=== PATIENT | female | born 1960 | race Caucasian/White ===

== ENCOUNTER → 2016-08-01 | Outpatient (CLI) | payer BC ==
--- NOTE | 2016-08-03 08:47 | MM ---
Reason for exam: screening (asymptomatic). Last mammogram was performed 1 year and 10 months ago. History: Patient is postmenopausal. Physical Findings: A clinical breast exam by your physician is recommended on an annual basis and results should be correlated with mammographic findings. MG 3D Screening Mammo W/Cad Bilateral CC and MLO view(s) were taken. Prior study comparison: September 20, 2014, bilateral MG screening mammo w CAD. August 07, 2012, bilateral digital screening mammo w/CAD. Unchanged nodular asymmetry superior left breast. Stable oil cyst calcifications upper outer right breast. No significant changes when compared with prior studies. ASSESSMENT: Negative, BI-RAD 1 RECOMMENDATION: Routine screening mammogram of both breasts in 1 year.
== END | disposition home or self-care (01) ==
LOC: RADMAMWWP 14:34
PROVIDERS: ATTEND Family Medicine
DX: Z12.31 Encounter for screening mammogram for malignant neoplasm of breast (principal)
CPT/HCPCS: 77063; G0202

== ENCOUNTER 2020-11-02 11:49 | Inpatient (IN) | payer BC ==
[2020-11-02] MEDS ORDERED: PIPERACILLIN-TAZOBACTAM 3.375 GM in SODIUM CHLORIDE 0.9% 100 ML IVPB STA (12:32)
[2020-11-02] MEDS ORDERED: SODIUM CHLORIDE 0.9% 500 ML 500 ML IV ONE (12:33)
[2020-11-02] MEDS ORDERED: HYDROmorphone 0.5 MG/0.5 ML SYRINGE IVP STA (12:33)
[2020-11-02] MEDS ORDERED: diphenhydrAMINE 50 MG/ML 1 ML VIAL IVP STA (13:01)
[2020-11-02] MEDS ORDERED: FAMOTIDINE 20 MG/2 ML VIAL IV STA (13:01)
[2020-11-02] MEDS ORDERED: methylPREDNISolone SOD SUCCI 125 MG/2 ML VIAL IV STA (13:01)
--- NOTE | 2020-11-02 13:51 | ED ---
Skin/Abscess/FB HPI - General Source: patient Mode of arrival: ambulatory Limitations: no limitations <Sheela Almaguer - Last Filed: 11/02/20 14:18> <Da Glover - Last Filed: 11/02/20 15:50> - General Chief complaint: Skin/Abscess/Foreign Body Stated complaint: poss MRSA Time Seen by Provider: 11/02/20 12:03 - History of Present Illness Initial comments: 59-year-old female IDDM, with IV contrast allergy presenting to the ER today for chief complaint of right inner buttock abscess. pt states that her right inner buttock near the "butthole" is painful, red and swollen. she is concerned that she has an abscess. pt states it has been ongoing 4-5 days, but worsened significantly the last 24. pt denies fevers, chills, general malaise. Pt denies rectal bleeding/discharge. pt denies additional complaints. Upon arrival patient appears nontoxic. (Sheela Almaguer) - Related Data Home Medications Medication Instructions Recorded Confirmed Amitriptyline HCl [Elavil] 75 mg PO HS 04/09/15 11/02/20 Omeprazole [PriLOSEC] 20 mg PO AC-BRKFST 04/09/15 11/02/20 Atorvastatin [Lipitor] 40 mg PO DAILY 11/02/20 11/02/20 Insulin Aspart [NovoLOG Flexpen] 12 units SQ AC-TID 11/02/20 11/02/20 Insulin Degludec [Tresiba 12 units SQ HS 11/02/20 11/02/20 Flextouch U-100] Levothyroxine Sodium 150 mcg PO DAILY 11/02/20 11/02/20 Allergies Allergy/AdvReac Type Severity Reaction Status Date / Time Iodinated Contrast Media Allergy Rash/Hives Verified 11/02/20 14:06 Review of Systems ROS Other: All systems not noted in ROS Statement are negative. <Sheela Almaguer - Last Filed: 11/02/20 14:18> ROS Other: All systems not noted in ROS Statement are negative. <Da Glover - Last Filed: 11/02/20 15:50> ROS Statement: Those systems with pertinent positive or pertinent negative responses have been documented in the HPI. Past Medical History Past Medical History: Hyperlipidemia Additional Past Medical History / Comment(s): neuropathy History of Any Multi-Drug Resistant Organisms: None Reported Past Surgical History: Cholecystectomy, Coronary Bypass/CABG Past Psychological History: No Psychological Hx Reported Smoking Status: Current every day smoker Past Alcohol Use History: None Reported Past Drug Use History: None Reported <Sheela Almaguer - Last Filed: 11/02/20 14:18> General Exam Limitations: no limitations <Sheela Almaguer - Last Filed: 11/02/20 14:18> - General Exam Comments Initial Comments: General: The patient is awake and alert, in no distress, and does not appear acutely ill. Eye: Pupils are equal, round and reactive to light, extra-ocular movements are intact. No nystagmus. There is normal conjunctiva bilaterally. No signs of icterus. Ears, nose, mouth and throat: There are moist mucous membranes and no oral lesions. Neck: The neck is supple, there is no tenderness or JVD. Cardiovascular: There is a regular rate and rhythm. No murmur, rub or gallop is appreciated. Respiratory: Lungs are clear to auscultation, respirations are non-labored, breath sounds are equal. No wheezes, stridor, rales, or rhonchi. Gastrointestinal: [Soft, non-distended, non-tender abdomen without masses or organomegaly noted. There is no rebound or guarding present. No CVA tenderness. Bowel sounds are unremarkable.] Musculoskeletal: Normal ROM, no tenderness. Strength 5/5. Sensation intact. Pulses equal bilaterally 2+. Neurological: A&O x 3. CN II-XII intact, There are no obvious motor or sensory deficits. Coordination appears grossly intact. Speech is normal. Skin: Skin is warm and dry and no rashes. large area of redness, induration at the 3 o clock position adjacent to anus. Patient has some vesicular lesions in area. the redness spreads distally-- Psychiatric: Cooperative, appropriate mood & affect, normal judgment. (Sheela Almaguer) Course <Sheela Almaguer - Last Filed: 11/02/20 14:18> Vital Signs 11/02/20 11/02/20 11:52 13:47 Temperature 97.8 F Pulse Rate 110 H 96 Respiratory 18 18 Rate Blood Pressure 113/55 130/76 O2 Sat by Pulse 94 L 96 Oximetry - Reevaluation(s) Reevaluation #1: signed out to Dr Glover 11/02/20 14:18 (Sheela Almaguer) Medical Decision Making - Lab Data Result diagrams: 11/02/20 13:12 11/02/20 13:12 <Sheela Almaguer - Last Filed: 11/02/20 14:18> - Lab Data Result diagrams: 11/02/20 13:12 11/02/20 13:12 <Da Glover - Last Filed: 11/02/20 15:50> - Medical Decision Making suspected large abscess with significant surrounding cellulitis. pt evaluated with my attending Dr Glover who recommends admission on IV abx to general surgery; pt signed out to Dr. Glover pending CT results/final lab studies/EKG (Sheela Almaguer) EKG shows sinus rhythm with occasional PVC at 92 bpm FL interval 274 QRS is 90 QT interval 32 QTC is 472. No ST segment elevation or depression Computed tomography scan I got a call from the radiologist and he stated there was a large abscess in the perirectal region which had subcutaneous air and could be a necrotizing fasciitis. At this point time at 3:23 PM I spoke with Dr. Pimentel and informed her of the abscess and subcutaneous air. (Da Glover) - Lab Data Lab Results 11/02/20 11/02/20 11/02/20 Range/Units 13:12 13:12 13:12 WBC 17.3 H (3.8-10.6) k/uL RBC 3.96 (3.80-5.40) m/uL Hgb 13.2 (11.4-16.0) gm/dL Hct 38.6 (34.0-46.0) % MCV 97.3 (80.0-100.0) fL MCH 33.4 (25.0-35.0) pg MCHC 34.3 (31.0-37.0) g/dL RDW 12.7 (11.5-15.5) % Plt Count 309 (150-450) k/uL MPV 7.5 Neutrophils % 86 % Lymphocytes % 7 % Monocytes % 5 % Eosinophils % 1 % Basophils % 0 % Neutrophils # 15.0 H (1.3-7.7) k/uL Lymphocytes # 1.3 (1.0-4.8) k/uL Monocytes # 0.8 (0-1.0) k/uL Eosinophils # 0.1 (0-0.7) k/uL Basophils # 0.0 (0-0.2) k/uL Sodium 127 L (137-145) mmol/L Potassium 4.8 (3.5-5.1) mmol/L Chloride 92 L (98-107) mmol/L Carbon Dioxide 23 (22-30) mmol/L Anion Gap 12 mmol/L BUN 16 (7-17) mg/dL Creatinine 0.76 (0.52-1.04) mg/dL Est GFR (CKD-EPI)AfAm >90 (>60 ml/min/1.73 sqM) Est GFR (CKD-EPI)NonAf 87 (>60 ml/min/1.73 sqM) Glucose 419 H (74-99) mg/dL POC Glucose (mg/dL) (75-99) mg/dL POC Glu Filleter ID Plasma Lactic Acid Amadeo 2.3 H* (0.7-2.0) mmol/L Calcium 8.9 (8.4-10.2) mg/dL Phosphorus (2.5-4.5) mg/dL Magnesium 1.0 L (1.6-2.3) mg/dL Total Bilirubin 1.2 (0.2-1.3) mg/dL AST 46 H (14-36) U/L ALT 30 (4-34) U/L Alkaline Phosphatase 138 H (38-126) U/L Total Protein 6.9 (6.3-8.2) g/dL Albumin 3.7 (3.5-5.0) g/dL Acetone, Qual Positive (Negative) 11/02/20 11/02/20 Range/Units 13:12 15:16 WBC (3.8-10.6) k/uL RBC (3.80-5.40) m/uL Hgb (11.4-16.0) gm/dL Hct (34.0-46.0) % MCV (80.0-100.0) fL MCH (25.0-35.0) pg MCHC (31.0-37.0) g/dL RDW (11.5-15.5) % Plt Count (150-450) k/uL MPV Neutrophils % % Lymphocytes % % Monocytes % % Eosinophils % % Basophils % % Neutrophils # (1.3-7.7) k/uL Lymphocytes # (1.0-4.8) k/uL Monocytes # (0-1.0) k/uL Eosinophils # (0-0.7) k/uL Basophils # (0-0.2) k/uL Sodium (137-145) mmol/L Potassium (3.5-5.1) mmol/L Chloride (98-107) mmol/L Carbon Dioxide (22-30) mmol/L Anion Gap mmol/L BUN (7-17) mg/dL Creatinine (0.52-1.04) mg/dL Est GFR (CKD-EPI)AfAm (>60 ml/min/1.73 sqM) Est GFR (CKD-EPI)NonAf (>60 ml/min/1.73 sqM) Glucose (74-99) mg/dL POC Glucose (mg/dL) 429 H (75-99) mg/dL POC Glu Filleter ID Naa Wayne Plasma Lactic Acid Amadeo (0.7-2.0) mmol/L Calcium (8.4-10.2) mg/dL Phosphorus 3.2 (2.5-4.5) mg/dL Magnesium (1.6-2.3) mg/dL Total Bilirubin (0.2-1.3) mg/dL AST (14-36) U/L ALT (4-34) U/L Alkaline Phosphatase (38-126) U/L Total Protein (6.3-8.2) g/dL Albumin (3.5-5.0) g/dL Acetone, Qual (Negative) Critical Care Time Critical Care Time: Yes Total Critical Care Time: 35 <Da Glover - Last Filed: 11/02/20 15:50> Disposition Is patient prescribed a controlled substance at d/c from ED?: No Time of Disposition: 14:19 Decision to Admit Reason: Admit from EC Decision Date: 11/02/20 Decision Time: 14:19 <Sheela Almaguer - Last Filed: 11/02/20 14:18> <Da Glover - Last Filed: 11/02/20 15:50> Clinical Impression: DKA (diabetic ketoacidoses), Perianal abscess, Necrotizing fasciitis Disposition: ADMITTED IP TO THIS HOSP Condition: Stable Referrals: Arturo Upton MD [Primary Care Provider] - 1-2 days
[2020-11-02 13:52] LABS: Basophils % (A) 0 %; Eosinophils # (A) 0.1 k/uL (0-0.7); Eosinophils % (A) 1 %; HCT 38.6 % (34.0-46.0); HGB 13.2 gm/dL (11.4-16.0); Lymphocytes # (A) 1.3 k/uL (1.0-4.8); Lymphocytes % (A) 7 %; MCH 33.4 pg (25.0-35.0); MCHC 34.3 g/dL (31.0-37.0); MCV 97.3 fL (80.0-100.0); Mean Platelet Volume 7.5; Monocytes # (A) 0.8 k/uL (0-1.0); Monocytes % (A) 5 %; Neutrophils % (A) 86 %; Platelet Count 309 k/uL (150-450); RBC 3.96 m/uL (3.80-5.40); RDW 12.7 % (11.5-15.5); WBC 17.3 k/uL (3.8-10.6)
[2020-11-02] MEDS ORDERED: SODIUM CHLORIDE 0.9% 1,000 ML IV ONE (13:58)
[2020-11-02] MEDS ORDERED: VANCOMYCIN IV PER PHARMACY 1 EACH MISC MISCELLANE PRN (14:01)
[2020-11-02 14:04] LABS: ALT 30 U/L (4-34); AST 46 U/L (14-36); African American GFR (CKD) >90 (>60 ml/min/1.73 sqM); Albumin 3.7 g/dL (3.5-5.0); Alkaline Phosphatase 138 U/L (38-126); Anion Gap 12 mmol/L; Blood Urea Nitrogen 16 mg/dL (7-17); Calcium 8.9 mg/dL (8.4-10.2); Carbon Dioxide 23 mmol/L (22-30); Chloride 92 mmol/L (98-107); Glucose 419 mg/dL (74-99); Non-African American GFR(CKD) 87 (>60 ml/min/1.73 sqM); Potassium 4.8 mmol/L (3.5-5.1); Sodium 127 mmol/L (137-145); Total Bilirubin 1.2 mg/dL (0.2-1.3); Total Protein 6.9 g/dL (6.3-8.2)
[2020-11-02] MEDS ORDERED: INSULIN REGULAR BOLUS (FROM DRIP BAG) IV ONE (14:17)
[2020-11-02] MEDS ORDERED: VANCOMYCIN 2,000 MG in SODIUM CHLORIDE 0.9% 500 ML 500 ML IVPB ONE (14:30)
--- NOTE | 2020-11-02 15:23 | CT ---
EXAMINATION TYPE: CT pelvis w con DATE OF EXAM: 11/02/2020 COMPARISON: Prior CT June 20, 2012 HISTORY: Perianal abscess CT DLP: 1157 mGycm Automated exposure control for dose reduction was used. CONTRAST: Performed without oral but with IV Contrast, patient injected with 100 ML mL of Isovue 300. FINDINGS: Cardiomegaly is identified. Imaging includes the entire abdomen though not ordered. Mild to moderate bibasilar scarring and/or atelectasis. Visualized liver is low dense relative to the spleen consisten t with diffuse fatty infiltration. Cholecystectomy clips are redemonstrated. Mild/moderate focal fat stranding in the pancreatic head and uncinate process redemonstrated. Urinary bladder appears within normal limits. Vertebral uterus is seen. No adnexal masses noted. No s uspicious smaller large bowel dilatation. Normal-appearing appendix right lower quadrant. Mild to mod erate mixed plaque in the distal abdominal aorta extends into branch vessels. Scattered bilateral pel reid phleboliths. Persistent small to moderate-sized fat-containing left inguinal hernia. There is moderate to severe ill-defined fluid and fat stranding over the inferior gluteal regions rig ht greater than left. There is more focal fluid in the deeper central right tissue with scattered irr egular foci of air. There is larger deeper 2.4 cm focus of air axial image 108. There is some extensi on of fluid and foci of air into the left deep perianal region. Roughly 2 cm focus of air superiorly in the midline 100 is noted just posterior to the anus. No thick well-formed fluid collection identified. Craniocaud al length of involvement is roughly 10.0 cm coronal image 103. IMPRESSION: Significant infection in the posterior perianal region extending inferiorly throughout th e inferior posterior soft tissue greater in severity on the right versus left. Presence of ill-define d air foci is noted raising concern for gas forming organism and/or necrotizing fasciitis. Critical results communicated to covering ER physician via telephone at time of dictation.
[2020-11-02 15:27] LABS: Glucose,Whole Blood 429 mg/dL (75-99)
[2020-11-02] MEDS: INSULIN REGULAR 100 UNIT in SODIUM CHLORIDE 0.9% 100 ML IV SCH ×2 (15:52→23:34)
[2020-11-02 16:31] LABS: Appearance,Urine Cloudy (Clear); Bacteria,Urine Rare /hpf; Bilirubin,Urine Negative (Negative); Blood,Urine Negative (Negative); Color,Urine Yellow; Glucose,Urine (UA) 4+ (Negative); Ketones,Urine Negative (Negative); Leukocyte Esterase,Urine Negative (Negative); Mucus,Urine Rare /hpf; Nitrite,Urine Negative (Negative); Protein,Urine Trace (Negative); RBC,Urine 3 /hpf (0-5); Squamous Epithelial Cell,Urine 17 /hpf (0-4); WBC,Urine 10 /hpf (0-5)
[2020-11-02 16:54] LABS: Specific Gravity,Urine >1.050 (1.001-1.035)
[2020-11-02 17:08] LABS: Glucose,Whole Blood 285 mg/dL (75-99)
[2020-11-02 17:39] LABS: African American GFR (CKD) >90 (>60 ml/min/1.73 sqM); Anion Gap 6 mmol/L; Blood Urea Nitrogen 9 mg/dL (7-17); Carbon Dioxide 15 mmol/L (22-30); Chloride 111 mmol/L (98-107); Glucose 198 mg/dL (74-99); Non-African American GFR(CKD) >90 (>60 ml/min/1.73 sqM); Phosphorus 1.7 mg/dL (2.5-4.5); Sodium 132 mmol/L (137-145)
[2020-11-02 17:43] LABS: Potassium 3.2 mmol/L (3.5-5.1)
[2020-11-02 17:52] LABS: Glucose,Whole Blood 251 mg/dL (75-99)
[2020-11-02] MEDS: D5-0.45% NACL WITH KCL 20MEQ/L 1,000 ML IV SCH (18:16)
[2020-11-02] MEDS ORDERED: ALPRAZolam 0.25 MG TAB PO PRN (18:19)
[2020-11-02] MEDS ORDERED: ACETAMINOPHEN TAB 500 MG TAB PO PRN (18:19)
[2020-11-02] MEDS ORDERED: TEMAZEPAM 15 MG CAP PO PRN (18:19)
[2020-11-02] MEDS ORDERED: Potassium Replacement Protocol 1 EACH MISC MISCELLANE PRN (18:25)
[2020-11-02] MEDS ORDERED: Magnesium Replacement Protocol 1 EACH MISC MISCELLANE PRN (18:25)
[2020-11-02 18:38] LABS: ALT 18 U/L (4-34); AST 32 U/L (14-36); Albumin 1.8 g/dL (3.5-5.0); Alkaline Phosphatase 70 U/L (38-126); Total Bilirubin 0.6 mg/dL (0.2-1.3); Total Protein 4.2 g/dL (6.3-8.2)
[2020-11-02 18:54] LABS: Calcium 5.7 mg/dL (8.4-10.2)
--- NOTE | 2020-11-02 18:59 | XR ---
EXAMINATION TYPE: XR chest 1V portable DATE OF EXAM: 11/02/2020 CLINICAL HISTORY: chf. TECHNIQUE: Portable frontal view of the chest. COMPARISON: 04/09/2015 FINDINGS: The patient is rotated to the left. Redemonstrated sternotomy wires, with fracturing of th e 2 superior wires. Cardiomegaly. Pulmonary vascular congestion. Redemonstrated interstitial coarseni ng. Subsegmental linear atelectasis and/or scarring of the peripheral left lung. No pleural effusion or pneumothorax. No acute displaced osseous abnormality. IMPRESSION: Cardiomegaly and pulmonary vascular congestion. Finding likely represent CHF.
[2020-11-02 19:06] LABS: Glucose,Whole Blood 194 mg/dL (75-99)
--- NOTE | 2020-11-02 19:15 | HP ---
HISTORY AND PHYSICAL CHIEF COMPLAINTS: Abscess of the left gluteal region and as well as uncontrolled blood sugars. HISTORY OF PRESENT ILLNESS: This 59-year-old woman with a past medical history of multiple medical problems, hypertension, history of peripheral neuropathy, history of CAD, CABG, diabetes type [address] Upton in the outpatient setting, recently completed Covid shots according to her and since early this week, the patient is having increasing pain and swelling of the right gluteal area which has been draining at this time for the last 5 days and because of increasing complaints, patient came to [facility]. Patient was found to have acute diabetic ketoacidosis with sugars in the 400s and the patient started on DKA regimen. Plasma lactic acid elevated indicating sepsis. The patient also underwent a pelvis CT which showed significant infection in the posterior perianal region extending inferiorly through the inferior posterior tissue greater on the right versus left and presence of ill-defined alkaline phosphatase is also noted. The possibility of necrotizing fasciitis is considered at this time. Apparently, according to the ER physician, there are no beds for the patient to be transferred anywhere and surgical evaluation with Dr. Lamb is obtained. There is no history of any rigors. There is no history of headache, loss of consciousness, seizures at this time. PAST MEDICAL HISTORY: History of diabetes, hypertension, hyperlipidemia, history of neuropathy, history of CAD/CABG. MEDICATIONS: Prior to admission: Home medications are: Tarceva, NovoLog, Lipitor, Prilosec, levothyroxine, Elavil. ALLERGIES: IODINATED CONTRAST DYES. FAMILY HISTORY: No history of heart disease or strokes in the family. SOCIAL HISTORY: History of smoking. No history of alcohol. REVIEW OF SYSTEMS: ENT: No diminished vision. No diminished hearing. CARDIOVASCULAR system: No angina or palpitations. RESPIRATORY: As mentioned earlier. GI: As mentioned earlier. : No dysuria or hematuria. NERVOUS SYSTEM: No numbness, weakness. ALLERGY/IMMUNOLOGY: No asthma or hayfever. MUSCULOSKELETAL: As mentioned earlier. HEMATOLOGY/ONCOLOGY: No history of anemia. ENDOCRINE: As mentioned earlier. CONSTITUTIONAL: As mentioned earlier. DERMATOLOGY: Negative. RHEUMATOLOGY: Negative. PSYCHIATRIC: As mentioned earlier. PHYSICAL EXAMINATION: Alert and oriented x2. Pulse 83. Blood pressure 104/59, respirations 18. Temperature 97.8. Pulse ox 98% on room air. HEENT is conjunctivae normal. NECK is no JVD. CARDIOVASCULAR: S1, S2 muffled. RESPIRATION: Breath sounds diminished in the bases. No rhonchi. No crackles. ABDOMEN: Soft, nontender. No mass palpable. Obese. Examination of the gluteal region significant abscess with some purulent drainage, pain, erythema and has also gas on pressing the lesion present. Otherwise, legs no edema. No swelling. NERVOUS SYSTEM: Higher functions as mentioned. Moves all four limbs. No focal motor or sensory deficits. LYMPHATICS: No lymph nodes palpable in the neck, axillae or groin. SKIN: No ulcer, no rash and no bleeding. JOINTS: No active deforming arthropathy. LABS: WBC 17.2, sodium 130, potassium 3.2, glucose noted. Lactic acid 2.3. ASSESSMENT: 1. Acute diabetic ketoacidosis present on admission. 2. Perianal abscess with gluteal abscess on the left with possible necrotizing fasciitis with sepsis present on admission. 3. Hyponatremia. 4. Increased WBC. 5. Hypokalemia. 6. Hypomagnesemia. 7. Elevated plasma lactic acid. 8. Elevated AST. 9. Hyperlipidemia. 10.History of peripheral neuropathy. 11.Diabetes mellitus type 2 uncontrolled with hyperglycemia. 12.Cholecystectomy. 13.History of coronary artery disease, coronary artery bypass grafting. 14.History of continued ongoing nicotine dependence. 15.Obesity with body mass of 31.6. RECOMMENDATIONS AND DISCUSSION: In this 59-year-old woman who presented with multiple complex medical issues, we will monitor the patient closely. Continue the current medications, management and symptomatic treatment. Continue DKA protocol. Surgical consultation. Broad-spectrum IV antibiotics, cultures. Possible surgical intervention. Prognosis extremely guarded because of multiple complex medical issues. See orders for details. DVT prophylaxis. Incentive spirometry. Further recommendations to follow. A copy of this dictation being forwarded to Dr. Upton who is the primary physician. MMODL / IJN: [id number] /
[2020-11-02] MEDS: NICOTINE 14MG/24HR PATCH TRANSDERM SCH (19:20)
[2020-11-02 20:03] LABS: Glucose,Whole Blood 180 mg/dL (75-99)
--- NOTE | 2020-11-02 20:05 | P.GSCN ---
History of Present Illness Consult date: 11/02/20 History of present illness: CHIEF COMPLAINT: Complex buttock abscess HISTORY OF PRESENT ILLNESS: The patient is a 59 year female with diabetes usually well-controlled with blood sugars in the 120s who presents with 3 day history of accelerated complicated bilateral buttock abscess. Her blood sugars has been high over 400 which is new. She reports spontaneous drainage this afternoon following admission. She presented to the emergency room today with elevated white count over 17,000. She reported difficulty walking. She reports being sick 1 week ago after having her second COVID-19 vaccination from [employer]. She reports having fevers almost 1 week ago overlapping with her vaccination. She was unable to take her diabetic medications in the same timeframe hence her hyperglycemia. She had CT of the pelvis demonstrating complex pelvic abscess where necrotizing fasciitis cannot be excluded. General surgery is consulted as a result. PAST MEDICAL HISTORY: See list and reviewed PAST SURGICAL HISTORY: See list and reviewed MEDICATIONS: See list and reviewed ALLERGIES: See list and reviewed SOCIAL HISTORY: See list and reviewed FAMILY HISTORY: See list and reviewed REVIEW OF ORGAN SYSTEMS: CONSTITUTIONAL: Past fevers one week ago. No recent weight loss. EYES: Denies any trouble with vision. No glasses. HEENT: No difficulties with hearing. No nosebleeds. No difficulty swallowing. RESPIRATORY: Past tobacco abuse disorder. CARDIOVASCULAR: History of CABG including coronary artery disease. GASTROINTESTINAL: Denies fatty food intolerance. Denies change in bowel habits and gas bloat. GENITOURINARY: Denies any blood in urine or increased urinary frequency. NEUROLOGICAL: Has neuropathy. No seizure disorders or headaches. MUSCULOSKELETAL: Denies any back pain, stiffness or joint arthritis. SKIN: Denies previous buttock abscess. PSYCHIATRIC: Denies current depression or suicidal thoughts. ENDOCRINE: Has recent poorly controlled blood sugars over 400 due to unable to take medications. Denies hypothyroidism. She has insulin-dependent diabetes. HEME/LYMPHATIC: Denies any lumps and bumps around the neck. No recent deep venous thrombosis. ALLERGY/IMMUNOLOGY: No immunoglobulin therapy. No immune deficiencies. BREAST: Denies current breast lumps, pain or nipple discharge. PHYSICAL EXAM: VITALS: Reviewed CONSTITUTIONAL: Well developed and in no acute distress. Nontoxic in appearance. EYES: Conjuctivae without sclera icterus. Extraocular movements grossly intact. HEAD, EARS, NOSE, THROAT: Moist buccal mucosa. Head is atraumatic, normocephalic. Hears conversational speech. No nasal drainage. NECK: Supple. No JV distention. RESPIRATORY: Non-labored respirations and equal bilateral excursions. No gross wheezes. CARDIOVASCULAR: Regular rate and rhythm. Extremities without moderate edema. Palpable 2+ radial pulses. ABDOMEN: Soft. Non-tender. Nondistended. LYMPH: No neck lymphadenopathy MUSCULOSKELETAL: Nail and fingers with good capillary refill. SKIN: Warm and well perfused with good skin turgor. NEUROLOGIC: Cranial nerves II through XII grossly intact. Sensation upper and extremities intact. No focal or lateralizing signs. PSYCH: Appropriate affect. Alert and oriented to person, place and time. Displays appropriate insight. SKIN: Buttock dressing intact with seropurulent drainage blue pad. CLINCAL LABS: Reviewed. WBCs 17,300 and elevated. Sodium low 132. Potassium low 3.2. Blood sugar glucose elevated 429 down to 159. Calcium low 5.7. COVID-19 negative. IMAGING: Independently CT pelvis without contrast demonstrates incarcerated hiatal hernia. Presence of cholecystectomy clips. Small bowel unremarkable. Large fat-containing left inguinal hernia. Right large cavernous abscess with air and gas. Small tract along the left buttock. This is my independent interp retation. RADIOLOGY: Report reviewed. CT pelvis demonstrating 10 cm ill-defined right gluteal abscess with extension to the left. Findings questionable for necrotizing fasciitis. EKG: Occasional premature ventricular complexes with nonspecific ST abnormality, abnormal EKG ASSESSMENT: 1. Abnormal computed tomography scan for necrotizing fasciitis, right buttock 2. Bilateral buttock complex perianal abscess 3. 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 Hyperglycemia 5. Coronary artery disease status post CABG PLAN: 1. Surgical intervention with debridement of necrotizing fasciitis was described to the patient. 2. Inpatient hospitalization with infectious disease consultation. 3. Patient's elevated risk due to presentation of hypoglycemia, history of CABG, possible necrotizing fasciitis Thank you for this kind consultation. Past Medical History Past Medical History: Hyperlipidemia Additional Past Medical History / Comment(s): neuropathy History of Any Multi-Drug Resistant Organisms: None Reported Past Surgical History: Cholecystectomy, Coronary Bypass/CABG Past Psychological History: No Psychological Hx Reported Smoking Status: Current every day smoker Past Alcohol Use History: None Reported Past Drug Use History: None Reported Medications and Allergies Home Medications Medication Instructions Recorded Confirmed Type Amitriptyline HCl [Elavil] 75 mg PO HS 04/09/15 11/02/20 History Omeprazole [PriLOSEC] 20 mg PO AC-BRKFST 04/09/15 11/02/20 History Atorvastatin [Lipitor] 40 mg PO DAILY 11/02/20 11/02/20 History Insulin Aspart [NovoLOG Flexpen] 12 units SQ AC-TID 11/02/20 11/02/20 History Insulin Degludec [Tresiba 12 units SQ HS 11/02/20 11/02/20 History Flextouch U-100] Levothyroxine Sodium 150 mcg PO DAILY 11/02/20 11/02/20 History Allergies Allergy/AdvReac Type Severity Reaction Status Date / Time Iodinated Contrast Media Allergy Rash/Hives Verified 11/02/20 14:06 Surgical - Exam Vital Signs Temp Pulse Resp BP Pulse Ox 97.8 F 110 H 18 113/55 94 L 11/02/20 11:52 11/02/20 11:52 11/02/20 11:52 11/02/20 11:52 11/02/20 11:52 Results - Labs 11/02/20 13:12 11/02/20 17:07 Abnormal Lab Results - Last 24 Hours (Table) 11/02/20 11/02/20 11/02/20 Range/Units 13:12 13:12 13:12 WBC 17.3 H (3.8-10.6) k/uL Neutrophils # 15.0 H (1.3-7.7) k/uL Sodium 127 L (137-145) mmol/L Potassium (3.5-5.1) mmol/L Chloride 92 L (98-107) mmol/L Carbon Dioxide (22-30) mmol/L Creatinine (0.52-1.04) mg/dL Glucose 419 H (74-99) mg/dL POC Glucose (mg/dL) (75-99) mg/dL Plasma Lactic Acid Amadeo 2.3 H* (0.7-2.0) mmol/L Calcium (8.4-10.2) mg/dL Phosphorus (2.5-4.5) mg/dL Magnesium 1.0 L (1.6-2.3) mg/dL AST 46 H (14-36) U/L Alkaline Phosphatase 138 H (38-126) U/L Total Protein (6.3-8.2) g/dL Albumin (3.5-5.0) g/dL Urine Appearance (Clear) Ur Specific [place] (1.001-1.035) Urine Protein (Negative) Urine Glucose (UA) (Negative) Urine WBC (0-5) /hpf Ur Squamous Epith Cells (0-4) /hpf Urine Bacteria (None) /hpf Urine Mucus (None) /hpf 11/02/20 11/02/20 11/02/20 Range/Units 15:16 15:20 16:57 WBC (3.8-10.6) k/uL Neutrophils # (1.3-7.7) k/uL Sodium (137-145) mmol/L Potassium (3.5-5.1) mmol/L Chloride (98-107) mmol/L Carbon Dioxide (22-30) mmol/L Creatinine (0.52-1.04) mg/dL Glucose (74-99) mg/dL POC Glucose (mg/dL) 429 H 285 H (75-99) mg/dL Plasma Lactic Acid Amadeo (0.7-2.0) mmol/L Calcium (8.4-10.2) mg/dL Phosphorus (2.5-4.5) mg/dL Magnesium (1.6-2.3) mg/dL AST (14-36) U/L Alkaline Phosphatase (38-126) U/L Total Protein (6.3-8.2) g/dL Albumin (3.5-5.0) g/dL Urine Appearance Cloudy H (Clear) Ur Specific [place] >1.050 H (1.001-1.035) Urine Protein Trace H (Negative) Urine Glucose (UA) 4+ H (Negative) Urine WBC 10 H (0-5) /hpf Ur Squamous Epith Cells 17 H (0-4) /hpf Urine Bacteria Rare H (None) /hpf Urine Mucus Rare H (None) /hpf 11/02/20 11/02/20 11/02/20 Range/Units 17:07 17:49 19:04 WBC (3.8-10.6) k/uL Neutrophils # (1.3-7.7) k/uL Sodium 132 L (137-145) mmol/L Potassium 3.2 L (3.5-5.1) mmol/L Chloride 111 H (98-107) mmol/L Carbon Dioxide 15 L (22-30) mmol/L Creatinine 0.39 L (0.52-1.04) mg/dL Glucose 198 H (74-99) mg/dL POC Glucose (mg/dL) 251 H 194 H (75-99) mg/dL Plasma Lactic Acid Amadeo (0.7-2.0) mmol/L Calcium 5.7 L* (8.4-10.2) mg/dL Phosphorus 1.7 L (2.5-4.5) mg/dL Magnesium (1.6-2.3) mg/dL AST (14-36) U/L Alkaline Phosphatase (38-126) U/L Total Protein 4.2 L (6.3-8.2) g/dL Albumin 1.8 L (3.5-5.0) g/dL Urine Appearance (Clear) Ur Specific [place] (1.001-1.035) Urine Protein (Negative) Urine Glucose (UA) (Negative) Urine WBC (0-5) /hpf Ur Squamous Epith Cells (0-4) /hpf Urine Bacteria (None) /hpf Urine Mucus (None) /hpf Diabetes panel 11/02/20 11/02/20 Range/Units 13:12 17:07 Sodium 127 L 132 L (137-145) mmol/L Potassium 4.8 3.2 L (3.5-5.1) mmol/L Chloride 92 L 111 H (98-107) mmol/L Carbon Dioxide 23 15 L (22-30) mmol/L BUN 16 9 (7-17) mg/dL Creatinine 0.76 0.39 L (0.52-1.04) mg/dL Glucose 419 H 198 H (74-99) mg/dL Calcium 8.9 5.7 L* (8.4-10.2) mg/dL AST 46 H 32 (14-36) U/L ALT 30 18 (4-34) U/L Alkaline Phosphatase 138 H 70 (38-126) U/L Total Protein 6.9 4.2 L (6.3-8.2) g/dL Albumin 3.7 1.8 L (3.5-5.0) g/dL Calcium panel 11/02/20 11/02/20 11/02/20 Range/Units 13:12 13:12 17:07 Calcium 8.9 5.7 L* (8.4-10.2) mg/dL Phosphorus 3.2 1.7 L (2.5-4.5) mg/dL Albumin 3.7 1.8 L (3.5-5.0) g/dL Pituitary panel 11/02/20 11/02/20 Range/Units 13:12 17:07 Sodium 127 L 132 L (137-145) mmol/L Potassium 4.8 3.2 L (3.5-5.1) mmol/L Chloride 92 L 111 H (98-107) mmol/L Carbon Dioxide 23 15 L (22-30) mmol/L BUN 16 9 (7-17) mg/dL Creatinine 0.76 0.39 L (0.52-1.04) mg/dL Glucose 419 H 198 H (74-99) mg/dL Calcium 8.9 5.7 L* (8.4-10.2) mg/dL Adrenal panel 11/02/20 11/02/20 Range/Units 13:12 17:07 Sodium 127 L 132 L (137-145) mmol/L Potassium 4.8 3.2 L (3.5-5.1) mmol/L Chloride 92 L 111 H (98-107) mmol/L Carbon Dioxide 23 15 L (22-30) mmol/L BUN 16 9 (7-17) mg/dL Creatinine 0.76 0.39 L (0.52-1.04) mg/dL Glucose 419 H 198 H (74-99) mg/dL Calcium 8.9 5.7 L* (8.4-10.2) mg/dL Total Bilirubin 1.2 0.6 (0.2-1.3) mg/dL AST 46 H 32 (14-36) U/L ALT 30 18 (4-34) U/L Alkaline Phosphatase 138 H 70 (38-126) U/L Total Protein 6.9 4.2 L (6.3-8.2) g/dL Albumin 3.7 1.8 L (3.5-5.0) g/dL Assessment and Plan (1) S/P CABG (coronary artery bypass graft) Current Visit: Yes Status: Acute Code(s): Z95.1 - PRESENCE OF AORTOCORONARY BYPASS GRAFT SNOMED Code(s): 354758036 (2) Insulin dependent type 2 diabetes mellitus, uncontrolled Current Visit: Yes Status: Acute Code(s): E11.65 - TYPE 2 DIABETES MELLITUS WITH HYPERGLYCEMIA; Z79.4 - SNF (CURRENT) USE OF INSULIN SNOMED Code(s): 086279511 (3) DKA (diabetic ketoacidoses) Current Visit: Yes Status: Acute Code(s): E11.10 - TYPE 2 DIABETES MELLITUS WITH KETOACIDOSIS WITHOUT COMA SNOMED Code(s): 435823271 (4) Necrotizing fasciitis Current Visit: Yes Status: Acute Code(s): M72.6 - NECROTIZING FASCIITIS SNOMED Code(s): 23921410 (5) Perianal abscess Current Visit: Yes Status: Acute Code(s): K61.0 - ANAL ABSCESS SNOMED Code(s): 61930825 (6) Tobacco abuse disorder Current Visit: Yes Status: Acute Code(s): Z72.0 - TOBACCO USE SNOMED C ode(s): 923592071
[2020-11-02] MEDS ORDERED: MIDAZOLAM 2 MG/2 ML VIAL ONE (20:57)
[2020-11-02] MEDS ORDERED: fentaNYL (PF) 50 MCG/ML 2 ML AMP ONE (20:57)
[2020-11-02] MEDS ORDERED: IV FLUID CONTINUATION 1,000 ML IV ONE (20:57)
[2020-11-02] MEDS ORDERED: ONDANSETRON 4 MG/2 ML VIAL ONE (20:57)
[2020-11-02] MEDS ORDERED: LIDOCAINE 1% INJ 10MG/ML (20 ML MDV) ONE (20:57)
[2020-11-02] MEDS ORDERED: SODIUM CHLORIDE 0.9% 100 ML BAG ONE (20:57)
[2020-11-02] MEDS ORDERED: PROPOFOL 10 MG/ML 20 ML VIAL IV ONE (20:57)
[2020-11-02] MEDS ORDERED: DEXAMETHASONE SOD PHOSPHATE 10 MG/ML 1 ML VIAL ONE (20:57)
[2020-11-02] MEDS ORDERED: ceFAZolin 1,000 MG VIAL ONE (20:57)
[2020-11-02] MEDS ORDERED: SUCCINYLCHOLINE CHLORIDE 100 MG/5 ML SYR IV ONE (20:57)
[2020-11-02 21:35] LABS: African American GFR (CKD) >90 (>60 ml/min/1.73 sqM); Anion Gap 12 mmol/L; Blood Urea Nitrogen 12 mg/dL (7-17); Carbon Dioxide 22 mmol/L (22-30); Chloride 100 mmol/L (98-107); Glucose 147 mg/dL (74-99); Non-African American GFR(CKD) >90 (>60 ml/min/1.73 sqM); Phosphorus 2.6 mg/dL (2.5-4.5); Potassium 4.1 mmol/L (3.5-5.1); Sodium 134 mmol/L (137-145)
[2020-11-02 21:41] LABS: Glucose,Whole Blood 208 mg/dL (75-99)
[2020-11-02] MEDS ORDERED: NALOXONE 0.4 MG/ML 1 ML VIAL IV PRN (22:28)
[2020-11-02 22:30] LABS: Glucose,Whole Blood 229 mg/dL (75-99)
--- NOTE | 2020-11-02 22:45 | P.OP ---
Date of Procedure: 11/02/20 Description of Procedure: SURGEON: KIANA MERCER MD AIRPLANE PILOT PHOTOGRAMMETRY: None. PREOPERATIVE DIAGNOSES: 1. Complex right buttock abscess with sepsis 2. Abnormal computed tomography scan for necrotizing fasciitis, right buttock 3. Uncontrolled insulin-dependent diabetes type 2 with neuropathy 4. Hyperglycemia 5. Tobacco abuse disorder 6. Coronary artery disease 7. Hypertensive heart disease 8. Obesity due to excess calories, BMI 31.6 9. Hypothyroidism 10. Gastroesophageal reflux disease POSTOPERATIVE DIAGNOSES: 1. Complex right buttock abscess with sepsis due to necrotizing fasciitis, 7 x 3 x 3 cm 2. Abnormal computed tomography scan for necrotizing fasciitis, right buttock 3. Uncontrolled insulin-dependent diabetes type 2 with neuropathy 4. Hyperglycemia 5. Tobacco abuse disorder 6. Coronary artery disease 7. Hypertensive heart disease 8. Obesity due to excess calories, BMI 31.6 9. Hypothyroidism 10. Gastroesophageal reflux disease PROCEDURES PERFORMED: 1. Sharp excisional debridement of right buttock, perineum, including subcutaneous tissue, muscle, fascia for necrotizing fasciitis, 7 x 3 x 3 cm (over 20 cm) 2. Mechanical debridement, right buttock and perineum using Pulsavac lavage 3 L normal saline solution with high pressure water jet including scalpel and f orceps, 7 x 3 x 3 cm Anesthesia: GETA Estimated Blood Loss (ml): 50 Pathology: Aerobic and anaerobic tissue culture, swab culture, right buttock tissue for permanent Condition: stable COMPLICATIONS: None. Operative Findings: 1. Foul-smelling dishwater soap necrotizing fasciitis involving subcutaneous tissue, fat, muscle right buttock 7 x 3 x 3 cm with tunneling superior gluteal fold involving perineum 2. Excisional debridement including subcutaneous tissue, muscle to healthy bleeding tissue was obtained. INDICATIONS: The patient is a 59-year-old female who presented acutely with feve rs, leukocytosis, tachycardia consistent with sepsis and complex right buttock abscess for [address] imaging demonstrated gas-forming pocket consistent with necrotizing fasciitis. Emergent surgical intervention was described. Benefits and risks of bleeding, infection, need for additional surgery, cosmetic deformity was described. Informed consent was obtained. DESCRIPTION OR PROCEDURE: Patient was brought into the operating room. After general induction, she was positioned in prone position. The buttocks were prepped and draped in a standard sterile fashion with Betadine. Timeout protocol was confirmed with the surgical team regarding the patient's name, procedure to be performed including preoperative medications using second- generation Ancef 2 g. DVT prophylaxis was confirmed with heparin and sequential compression devices. Along the right buttock at the and a transverse elliptical incision along skin tension lines was performed at the area of drainage. Foul-smelling dishwater soap discharge was found incorporating into the subcutaneous fat and muscle. Using a #10 scalpel as well as electro Bovie cautery, the necrotic tissue was excised to healthy bleeding tissue with tunneling identified along the superior gluteal cleft. Necrotizing fasciitis was confirmed extending to the perineum however the anus was spared. All necrotizing tissue was excised involving the subcutaneous tissue and muscle. For mechanical debridement, high pressure water jet Pulsavac 3 L normal saline solution was used to clean the bed of the tissue measuring 7 x 3 x 3 cm (over 20 cm). The skin of the buttocks were cleansed and dried using dilute hydrogen peroxide. Undermining were identified of the right buttock wound superiorly and laterally. The wound was packed open using 2 inch iodoform packing superiorly along the tunneling area of 2 feet. Kerlix roll 2 feet was placed within the bed of the wound. At the end of the procedure, needle, sponge, and instrument count was verified correct by exhibit technician. The patient was transferred into the postanesthesia care unit in stable condition.
[2020-11-02 23:18] LABS: Glucose,Whole Blood 203 mg/dL (75-99)
[2020-11-02] MEDS: AMITRIPTYLINE HCL 25 MG TAB PO SCH (23:29)
[2020-11-02] MEDS: HEPARIN SODIUM,PORCINE/PF 5,000 UNIT/0.5 ML SYRINGE SQ SCH (23:29)
[2020-11-03] MEDS: KETOROLAC 15 MG/ML 1 ML VIAL IVP SCH ×5 (00:12→23:35)
[2020-11-03] MEDS: D5-0.45% NACL WITH KCL 20MEQ/L 1,000 ML IV SCH (00:16)
[2020-11-03 00:19] LABS: Glucose,Whole Blood 200 mg/dL (75-99)
[2020-11-03] MEDS: VANCOMYCIN 1,750 MG in SODIUM CHLORIDE 0.9% 500 ML 500 ML IVPB SCH ×3 (00:21→19:09)
[2020-11-03 01:01] LABS: African American GFR (CKD) >90 (>60 ml/min/1.73 sqM); Anion Gap 9 mmol/L; Blood Urea Nitrogen 13 mg/dL (7-17); Carbon Dioxide 22 mmol/L (22-30); Chloride 102 mmol/L (98-107); Glucose 177 mg/dL (74-99); Magnesium 1.3 mg/dL (1.6-2.3); Non-African American GFR(CKD) >90 (>60 ml/min/1.73 sqM); Potassium 4.1 mmol/L (3.5-5.1); Sodium 133 mmol/L (137-145)
[2020-11-03 01:15] LABS: Glucose,Whole Blood 194 mg/dL (75-99)
[2020-11-03] MEDS: MAGNESIUM SULFATE-D5W PMX 1 GM in DEXTROSE/WATER 1 100ML.BAG IVPB SCH ×3 (02:04→04:03)
[2020-11-03 02:14] LABS: Glucose,Whole Blood 181 mg/dL (75-99)
[2020-11-03] MEDS ORDERED: INSULIN NPH 300 UNIT/3 ML VIAL SQ ONE (03:07)
[2020-11-03 03:14] LABS: Glucose,Whole Blood 169 mg/dL (75-99)
[2020-11-03] MEDS ORDERED: INSULIN DETEMIR (LEVEMIR) 100 UNIT/ML SYR SQ SCH ×2 (03:30→07:00)
[2020-11-03] MEDS: LEVOTHYROXINE 75 MCG TAB PO SCH (06:20)
[2020-11-03 06:54] LABS: Glucose,Whole Blood 182 mg/dL (75-99)
[2020-11-03] MEDS: INSULIN ASPART (NovoLOG) 100 UNIT/ML VIAL SQ SCH ×7 (07:11→20:28)
[2020-11-03] MEDS ORDERED: PANTOPRAZOLE 40 MG TABLET PO SCH ×2 (07:30)
[2020-11-03] MEDS: HYDROcodone/APAP 5-325MG 1 EACH TAB PO PRN (08:26)
[2020-11-03] MEDS: ATORVASTATIN 40 MG TAB PO SCH (08:31)
[2020-11-03] MEDS: PANTOPRAZOLE 40 MG/10 ML VIAL IV SCH (08:31)
[2020-11-03] MEDS: HEPARIN SODIUM,PORCINE/PF 5,000 UNIT/0.5 ML SYRINGE SQ SCH ×2 (08:31→20:19)
[2020-11-03] MEDS: NICOTINE 14MG/24HR PATCH TRANSDERM SCH (08:31)
[2020-11-03 09:09] LABS: Basophils % (A) 0 %; Eosinophils # (A) 0.1 k/uL (0-0.7); Eosinophils % (A) 0 %; HCT 30.5 % (34.0-46.0); HGB 10.5 gm/dL (11.4-16.0); Lymphocytes % (A) 7 %; MCH 33.9 pg (25.0-35.0); MCHC 34.4 g/dL (31.0-37.0); MCV 98.7 fL (80.0-100.0); Mean Platelet Volume 8.2; Monocytes # (A) 0.6 k/uL (0-1.0); Monocytes % (A) 4 %; Neutrophils # (A) 13.8 k/uL (1.3-7.7); Neutrophils % (A) 88 %; Platelet Count 306 k/uL (150-450); RBC 3.09 m/uL (3.80-5.40); RDW 12.6 % (11.5-15.5); WBC 15.6 k/uL (3.8-10.6)
[2020-11-03 09:23] LABS: African American GFR (CKD) >90 (>60 ml/min/1.73 sqM); Anion Gap 7 mmol/L; Blood Urea Nitrogen 16 mg/dL (7-17); Calcium 7.5 mg/dL (8.4-10.2); Carbon Dioxide 19 mmol/L (22-30); Chloride 104 mmol/L (98-107); Glucose 230 mg/dL (74-99); Non-African American GFR(CKD) >90 (>60 ml/min/1.73 sqM); Potassium 4.6 mmol/L (3.5-5.1); Sodium 130 mmol/L (137-145)
[2020-11-03 11:59] LABS: Glucose,Whole Blood 246 mg/dL (75-99)
[2020-11-03] MEDS: CLINDAMYCIN 900 MG in DEXTROSE 5% IN WATER 50 ML IVPB SCH ×4 (12:16→17:54)
[2020-11-03 13:42] VITALS: BMI 36.0
--- NOTE | 2020-11-03 16:13 | P.PN ---
Subjective Progress Note Date: 11/03/20 CHIEF COMPLAINT: Complex buttock abscess HISTORY OF PRESENT ILLNESS: The patient is a 59 year female presented with necrotizing infection of the right buttock and perineum status debridement 11/02/20. She is feeling better. She is tolerating diet. She is ambulating. REVIEW OF ORGAN SYSTEMS: No fevers or chills. No recent nausea or vomiting PHYSICAL EXAM: VITALS: Reviewed CONSTITUTIONAL: Well developed and in no acute distress. Nontoxic in appearance. EYES: Conjuctivae without sclera icterus. Extraocular movements grossly intact. HEAD, EARS, NOSE, THROAT: Moist buccal mucosa. Head is atraumatic, normocephalic. Hears conversational speech. No nasal drainage. RESPIRATORY: Non-labored respirations and equal bilateral excursions. No gross wheezes. CARDIOVASCULAR: Regular rate and rhythm. Extremities without moderate edema. Palpable 2+ radial pulses. ABDOMEN: Soft. Non-tender. Nondistended. MUSCULOSKELETAL: Nail and fingers with good capillary refill. SKIN: Warm and well perfused with good skin turgor. NEUROLOGIC: Cranial nerves II through XII grossly intact. Sensation upper and extremities intact. No focal or lateralizing signs. PSYCH: Appropriate affect. Alert and oriented to person, place and time. Displays appropriate insight. SKIN: Dressing intact. CLINCAL LABS: Reviewed. WBCs 17,300 down to 15,000 MICROBIOLOGY: Pending ASSESSMENT: 1. Necrotizing infection, right buttock 2. Diabetes type II, uncontrolled with hyperglycemia 3. Tobacco abuse disorder PLAN: 1. Infectious disease consultation for antibiotic management 2. Will need referral to wound care center for chronic wound management including home health care. 3. Continue IV antibiotics 4. Strict tobacco cessation advised. Objective - Vital Signs Vital signs: Vital Signs Temp 97.5 F L 11/03/20 12:00 Pulse 54 L 11/03/20 12:00 Resp 18 11/03/20 14:00 BP 89/55 11/03/20 12:00 Pulse Ox 95 11/03/20 12:00 Intake & Output 11/02/20 11/03/20 11/03/20 18:59 06:59 18:59 Intake Total 678.844 420 Output Total 50 Balance 628.844 420 Weight 99.79 kg 114 kg 114 kg Intake: IV 550 Intake, IV Titration 128.844 Amount Insulin Regular 100 unit 128.844 In Sodium Chloride 0.9% 100 ml @ 0.1 UNITS/KG/HR 10.079 mls/hr IV .Q10H2M [facility] Rx#:[id number] Oral 420 Output: Estimated Blood Loss 50 Other: Voiding Method Toilet Toilet # Voids 1 1 - Labs CBC & Chem 7: 11/03/20 08:27 11/03/20 08:27 Labs: Abnormal Lab Results - Last 24 Hours (Table) 11/02/20 11/02/20 11/02/20 Range/Units 15:20 16:57 17:07 WBC (3.8-10.6) k/uL RBC (3.80-5.40) m/uL Hgb (11.4-16.0) gm/dL Hct (34.0-46.0) % Neutrophils # (1.3-7.7) k/uL Sodium 132 L (137-145) mmol/L Potassium 3.2 L (3.5-5.1) mmol/L Chloride 111 H (98-107) mmol/L Carbon Dioxide 15 L (22-30) mmol/L Creatinine 0.39 L (0.52-1.04) mg/dL Glucose 198 H (74-99) mg/dL POC Glucose (mg/dL) 285 H (75-99) mg/dL Calcium 5.7 L* (8.4-10.2) mg/dL Phosphorus 1.7 L (2.5-4.5) mg/dL Magnesium (1.6-2.3) mg/dL Total Protein 4.2 L (6.3-8.2) g/dL Albumin 1.8 L (3.5-5.0) g/dL Urine Appearance Cloudy H (Clear) Ur Specific [place] >1.050 H (1.001-1.035) Urine Protein Trace H (Negative) Urine Glucose (UA) 4+ H (Negative) Urine WBC 10 H (0-5) /hpf Ur Squamous Epith Cells 17 H (0-4) /hpf Urine Bacteria Rare H (None) /hpf Urine Mucus Rare H (None) /hpf 11/02/20 11/02/20 11/02/20 Range/Units 17:49 19:04 20:00 WBC (3.8-10.6) k/uL RBC (3.80-5.40) m/uL Hgb (11.4-16.0) gm/dL Hct (34.0-46.0) % Neutrophils # (1.3-7.7) k/uL Sodium (137-145) mmol/L Potassium (3.5-5.1) mmol/L Chloride (98-107) mmol/L Carbon Dioxide (22-30) mmol/L Creatinine (0.52-1.04) mg/dL Glucose (74-99) mg/dL POC Glucose (mg/dL) 251 H 194 H 180 H (75-99) mg/dL Calcium (8.4-10.2) mg/dL Phosphorus (2.5-4.5) mg/dL Magnesium (1.6-2.3) mg/dL Total Protein (6.3-8.2) g/dL Albumin (3.5-5.0) g/dL Urine Appearance (Clear) Ur Specific [place] (1.001-1.035) Urine Protein (Negative) Urine Glucose (UA) (Negative) Urine WBC (0-5) /hpf Ur Squamous Epith Cells (0-4) /hpf Urine Bacteria (None) /hpf Urine Mucus (None) /hpf 11/02/20 11/02/20 11/02/20 Range/Units 20:35 21:39 22:28 WBC (3.8-10.6) k/uL RBC (3.80-5.40) m/uL Hgb (11.4-16.0) gm/dL Hct (34.0-46.0) % Neutrophils # (1.3-7.7) k/uL Sodium 134 L (137-145) mmol/L Potassium (3.5-5.1) mmol/L Chloride (98-107) mmol/L Carbon Dioxide (22-30) mmol/L Creatinine (0.52-1.04) mg/dL Glucose 147 H (74-99) mg/dL POC Glucose (mg/dL) 208 H 229 H (75-99) mg/dL Calcium (8.4-10.2) mg/dL Phosphorus (2.5-4.5) mg/dL Magnesium (1.6-2.3) mg/dL Total Protein (6.3-8.2) g/dL Albumin (3.5-5.0) g/dL Urine Appearance (Clear) Ur Specific [place] (1.001-1.035) Urine Protein (Negative) Urine Glucose (UA) (Negative) Urine WBC (0-5) /hpf Ur Squamous Epith Cells (0-4) /hpf Urine Bacteria (None) /hpf Urine Mucus (None) /hpf 11/02/20 11/03/20 11/03/20 Range/Units 23:16 00:17 00:19 WBC (3.8-10.6) k/uL RBC (3.80-5.40) m/uL Hgb (11.4-16.0) gm/dL Hct (34.0-46.0) % Neutrophils # (1.3-7.7) k/uL Sodium 133 L (137-145) mmol/L Potassium (3.5-5.1) mmol/L Chloride (98-107) mmol/L Carbon Dioxide (22-30) mmol/L Creatinine (0.52-1.04) mg/dL Glucose 177 H (74-99) mg/dL POC Glucose (mg/dL) 203 H 200 H (75-99) mg/dL Calcium 8.0 L (8.4-10.2) mg/dL Phosphorus (2.5-4.5) mg/dL Magnesium 1.3 L (1.6-2.3) mg/dL Total Protein (6.3-8.2) g/dL Albumin (3.5-5.0) g/dL Urine Appearance (Clear) Ur Specific [place] (1.001-1.035) Urine Protein (Negative) Urine Glucose (UA) (Negative) Urine WBC (0-5) /hpf Ur Squamous Epith Cells (0-4) /hpf Urine Bacteria (None) /hpf Urine Mucus (None) /hpf 11/03/20 11/03/20 11/03/20 Range/Units 01:13 02:13 03:13 WBC (3.8-10.6) k/uL RBC (3.80-5.40) m/uL Hgb (11.4-16.0) gm/dL Hct (34.0-46.0) % Neutrophils # (1.3-7.7) k/uL Sodium (137-145) mmol/L Potassium (3.5-5.1) mmol/L Chloride (98-107) mmol/L Carbon Dioxide (22-30) mmol/L Creatinine (0.52-1.04) mg/dL Glucose (74-99) mg/dL POC Glucose (mg/dL) 194 H 181 H 169 H (75-99) mg/dL Calcium (8.4-10.2) mg/dL Phosphorus (2.5-4.5) mg/dL Magnesium (1.6-2.3) mg/dL Total Protein (6.3-8.2) g/dL Albumin (3.5-5.0) g/dL Urine Appearance (Clear) Ur Specific [place] (1.001-1.035) Urine Protein (Negative) Urine Glucose (UA) (Negative) Urine WBC (0-5) /hpf Ur Squamous Epith Cells (0-4) /hpf Urine Bacteria (None) /hpf Urine Mucus (None) /hpf 11/03/20 11/03/20 11/03/20 Range/Units 06:52 08:27 08:27 WBC 15.6 H (3.8-10.6) k/uL RBC 3.09 L (3.80-5.40) m/uL Hgb 10.5 L (11.4-16.0) gm/dL Hct 30.5 L (34.0-46.0) % Neutrophils # 13.8 H (1.3-7.7) k/uL Sodium 130 L (137-145) mmol/L Potassium (3.5-5.1) mmol/L Chloride (98-107) mmol/L Carbon Dioxide 19 L (22-30) mmol/L Creatinine (0.52-1.04) mg/dL Glucose 230 H (74-99) mg/dL POC Glucose (mg/dL) 182 H (75-99) mg/dL Calcium 7.5 L (8.4-10.2) mg/dL Phosphorus (2.5-4.5) mg/dL Magnesium (1.6-2.3) mg/dL Total Protein (6.3-8.2) g/dL Albumin (3.5-5.0) g/dL Urine Appearance (Clear) Ur Specific [place] (1.001-1.035) Urine Protein (Negative) Urine Glucose (UA) (Negative) Urine WBC (0-5) /hpf Ur Squamous Epith Cells (0-4) /hpf Urine Bacteria (None) /hpf Urine Mucus (None) /hpf 11/03/20 Range/Units 11:58 WBC (3.8-10.6) k/uL RBC (3.80-5.40) m/uL Hgb (11.4-16.0) gm/dL Hct (34.0-46.0) % Neutrophils # (1.3-7.7) k/uL Sodium (137-145) mmol/L Potassium (3.5-5.1) mmol/L Chloride (98-107) mmol/L Carbon Dioxide (22-30) mmol/L Creatinine (0.52-1.04) mg/dL Glucose (74-99) mg/dL POC Glucose (mg/dL) 246 H (75-99) mg/dL Calcium (8.4-10.2) mg/dL Phosphorus (2.5-4.5) mg/dL Magnesium (1.6-2.3) mg/dL Total Protein (6.3-8.2) g/dL Albumin (3.5-5.0) g/dL Urine Appearance (Clear) Ur Specific [place] (1.001-1.035) Urine Protein (Negative) Urine Glucose (UA) (Negative) Urine WBC (0-5) /hpf Ur Squamous Epith Cells (0-4) /hpf Urine Bacteria (None) /hpf Urine Mucus (None) /hpf Microbiology - Last 24 Hours (Table) 11/02/20 21:29 Gram Stain - Preliminary Buttock Tissue Culture - Preliminary 11/02/20 19:00 Gram Stain - Preliminary Buttock Wound Culture - Preliminary 11/02/20 21:29 Gram Stain - Preliminary Buttock Wound Culture - Preliminary 11/02/20 21:29 Anaerobic Culture - Preliminary Buttock 11/02/20 21:29 Anaerobic Culture - Preliminary Buttock 11/02/20 19:00 Anaerobic Culture - Preliminary Buttock Assessment and Plan (1) Necrotizing fasciitis Current Visit: Yes Status: Acute Code(s): M72.6 - NECROTIZING FASCIITIS SNOMED Code(s): 41861379 (2) Perianal abscess Current Visit: Yes Status: Acute Code(s): K61.0 - ANAL ABSCESS SNOMED Code(s): 20162667 (3) S/P CABG (coronary artery bypass graft) Current Visit: Yes Status: Acute Code(s): Z95.1 - PRESENCE OF AORTOCORONARY BYPASS GRAFT SNOMED Code(s): 918834799 (4) Insulin dependent type 2 diabetes mellitus, uncontrolled Current Visit: Yes Status: Acute Code(s): E11.65 - TYPE 2 DIABETES MELLITUS WITH HYPERGLYCEMIA; Z79.4 - CARE HOME (CURRENT) USE OF INSULIN SNOMED Code(s): 504931142 (5) DKA (diabetic ketoacidoses) Current Visit: Yes Status: Acute Code(s): E11.10 - TYPE 2 DIABETES MELLITUS WITH KETOACIDOSIS WITHOUT COMA SNOMED Code(s): 566473243 (6) Tobacco abuse disorder Current Visit: Yes Status: Acute Code(s): Z72.0 - TOBACCO USE SNOMED Code(s): 098108713
[2020-11-03 16:55] LABS: Glucose,Whole Blood 186 mg/dL (75-99)
--- NOTE | 2020-11-03 16:56 | PN ---
PROGRESS NOTE DATE OF SERVICE: 11/03/2020 This 59-year-old woman who was admitted with acute diabetic ketoacidosis also had a significant perianal abscess with possibly necrotizing fasciitis. Dr. Lamb performed excision and debridement of the right buttock, including subcutaneous tissue muscles which had foul-smelling dishwater soap necrotizing fasciitis involving the subcutaneous tissue, fat, muscle, right buttock 7 x 3 x 3 cm with tunneling, superior gluteal fold involving the perineum. The patient also had diabetic ketosis present on admission. Currently the patient is being closely monitored. Blood sugar is being maintained at this time. Past medical history reviewed. REVIEW OF SYSTEMS: CARDIOVASCULAR SYSTEM: No angina, palpitations. RESPIRATORY SYSTEM: As mentioned earlier. GI: As mentioned earlier. : No dysuria or retention. NERVOUS SYSTEM: No numbness, weakness. CURRENT MEDICATIONS: Reviewed. They include Tylenol, [place], Xanax, Lipitor, cefazolin, clindamycin, heparin subcutaneously, NovoLog, Levemir, Toradol, Synthroid. PHYSICAL EXAMINATION: Patient is alert, oriented x3. Pulse 54, blood pressure 89/55, respiration 18, temperature 97.4, pulse ox 94% on room air. HEENT: Conjunctivae normal. NECK: No jugular venous distention. CARDIOVASCULAR SYSTEM: S1, S2 muffled. RESPIRATORY SYSTEM: Breath sounds diminished at the bases. A few scattered rhonchi. ABDOMEN: Soft, obese. LEGS: No edema. No swelling. NERVOUS SYSTEM: No focal deficit. EXAMINATION OF THE BACK: Status post surgery. LABS: WBC 15.6, hemoglobin 10.5. Sodium 130. ASSESSMENT: 1. Acute diabetic ketoacidosis, present on admission. 2. Right gluteal abscess with possible necrotizing fasciitis, status post incision and drainage and excision. 3. Hyponatremia. 4. Increased white count. 5. Relative hypotension. 6. Hypokalemia. 7. Hypomagnesemia. 8. Elevated plasma lactic acid, possibly secondary to sepsis. 9. Increased AST. 10.Hyperlipidemia. 11.History of peripheral neuropathy. 12.Diabetes mellitus, type 2, uncontrolled with hyperglycemia. 13.Cholecystectomy. 14.History of coronary artery disease, coronary artery bypass grafting. 15.History of continued ongoing nicotine dependence. 16.Obesity with body mass index of 31.6. 17.FULL CODE. RECOMMENDATIONS AND DISCUSSION: In this 59-year-old woman who presented with multiple complex medical issues, we will monitor the patient closely, continue the current medications, continue symptomatic treatment. The cultures are negative so far. Continue with antibiotics. Follow closely with Infectious Disease and Surgery. Dressing. Monitor blood sugars closely. I will increase the dose of Lantus to 14 units daily and continue to monitor. Further recommendations to follow. MMBRENDAL / CLAIREN: [id number] /
[2020-11-03] MEDS: HYDROmorphone 0.5 MG/0.5 ML SYRINGE IVP PRN (18:16)
[2020-11-03 19:35] LABS: Hemoglobin A1C 11.4 % (4.0-6.0)
[2020-11-03] MEDS: AMITRIPTYLINE HCL 25 MG TAB PO SCH (20:19)
[2020-11-03 20:25] LABS: Glucose,Whole Blood 190 mg/dL (75-99)
--- NOTE | 2020-11-03 22:40 | CONS ---
CONSULTATION DATE OF SERVICE: 11/03/2020 REASON FOR CONSULTATION: Left gluteal necrotizing infection. HISTORY OF PRESENT ILLNESS: The patient is a 59-year-old female presenting to [facility] ER yesterday morning for evaluation of pain to the right inner buttock area. The patient mentioned she did get her COVID vaccine on . That evening the patient did not feel well and has been complaining of body aches where she got the vaccine. Next she noticed some irritation to the right gluteal area, more of a dull aching pain initially. However, it got worse very quickly, within 24 hours becoming more swollen, red and painful. She described the pain to be throbbing, intensity almost 10/10, and no radiation. The patient did have a fever and some chills. With these symptoms, the patient was evaluated by the ER physician. On arrival in the ER, the patient was afebrile. The patient did have a white count of 17.3. Creatinine was 0.61. The patient had a CT of the pelvis that showed evidence of severe ill-defined fluid and fat stranding over the inferior gluteal region, right greater than left, and more focal fluid in the deeper central region. The patient was taken to the OR and she is status post extensive debridement with concern for underlying necrotizing fasciitis. Patient received a dose of vancomycin and Zosyn. Vancomycin was continued. Infectious Disease was consulted for further management of antibiotic therapy. As of this morning, the patient is afebrile. The patient's pain to the left gluteal area has decreased in intensity, down to about 4 to 5 out of 10 and no radiation. It still has some drainage, but not foul-smelling. Denies having any chest pain, shortness of breath or cough. No abdominal pain or diarrhea. REVIEW OF SYSTEMS: Positive points have been mentioned in the HPI. Rest of the systems are negative. PAST MEDICAL HISTORY: Hyperlipidemia, neuropathy. PAST SURGICAL HISTORY: Cholecystectomy, coronary artery bypass grafting. SOCIAL HISTORY: Currently a smoker. No drinking or drug use. FAMILY HISTORY: No pertinent findings noticed. ALLERGIES: IODINATED CONTRAST DYE. MEDICATIONS: Currently the patient is on Tylenol, [place], Xanax, Elavil, Lipitor, vancomycin, Pharmacy to dose, heparin, Dilaudid, NovoLog, Levemir, Toradol, Synthroid, magnesium oxide, Narcan, nicotine patch, Protonix, Restoril. PHYSICAL EXAMINATION: Blood pressure is 89/55, pulse 84, temperature 97.5. She is 95% on room air. General description is a middle-aged female lying in bed in no distress. No tachypnea or accessory muscle of respiration use. HEENT: Examination shows slight pallor. No scleral icterus. Oral mucous membrane is dry. NECK: Trachea is central. No thyromegaly. LUNGS: Unlabored breathing. Clear to auscultation. No wheeze or crackle. HEART: S1, S2. Regular rate and rhythm. ABDOMEN: Soft. No tenderness. No guarding or rigidity. Examination of the right gluteal area revealed a deep wound with no slough tissue. There was no surrounding induration or any foul-smelling drainage. EXTREMITIES: No edema of the feet. Neurologically the patient is awake, alert, oriented x3. Mood and affect normal. LABS: Hemoglobin is 10.5, white count 15.6, BUN of 16, creatinine 0.61. Electrolytes have been normal. Lactic acid 2.3. Liver enzymes are normal. Ricsk PCR was negative. Cultures currently pending. DIAGNOSTIC IMPRESSION AND PLAN: Patient admitted to hospital with necrotizing infection of the right gluteal area. This patient is status post extensive debridement. The patient did have progressive, rather quick worsening within 24 hours, which points more towards a streptococcal illness. Clinically doubt MRSA. PLAN: 1. Discontinue vancomycin. 2. Start the patient on cefazolin 2 grams q.8 and clindamycin 900 q.8 hours. 3. Local wound care with Aquacel Silver packing of the wound. 4. Will follow clinical condition and culture to further adjust medication if needed. Thank you for this consultation. Will follow this patient along with you. MMODL / IJN: [id number] /
[2020-11-04] MEDS: CLINDAMYCIN 900 MG in DEXTROSE 5% IN WATER 50 ML IVPB SCH ×6 (03:27→18:04)
[2020-11-04 05:50] LABS: Glucose,Whole Blood 136 mg/dL (75-99)
[2020-11-04] MEDS: KETOROLAC 15 MG/ML 1 ML VIAL IVP SCH ×3 (06:18→18:05)
[2020-11-04] MEDS: LEVOTHYROXINE 75 MCG TAB PO SCH (06:19)
[2020-11-04] MEDS: INSULIN ASPART (NovoLOG) 100 UNIT/ML VIAL SQ SCH ×7 (06:55→20:48)
[2020-11-04] MEDS: INSULIN DETEMIR (LEVEMIR) 100 UNIT/ML SYR SQ SCH (06:55)
[2020-11-04 07:15] LABS: Glucose,Whole Blood 131 mg/dL (75-99)
[2020-11-04] MEDS: ATORVASTATIN 40 MG TAB PO SCH (08:11)
[2020-11-04] MEDS: HEPARIN SODIUM,PORCINE/PF 5,000 UNIT/0.5 ML SYRINGE SQ SCH ×2 (08:11→20:48)
[2020-11-04] MEDS: HYDROcodone/APAP 5-325MG 1 EACH TAB PO PRN (08:11)
[2020-11-04] MEDS: PANTOPRAZOLE 40 MG/10 ML VIAL IV SCH (08:11)
[2020-11-04] MEDS: NICOTINE 14MG/24HR PATCH TRANSDERM SCH (08:12)
[2020-11-04 11:36] LABS: ALT 30 U/L (4-34); AST 41 U/L (14-36); African American GFR (CKD) >90 (>60 ml/min/1.73 sqM); Albumin 2.5 g/dL (3.5-5.0); Alkaline Phosphatase 101 U/L (38-126); Anion Gap 4 mmol/L; Blood Urea Nitrogen 20 mg/dL (7-17); Calcium 7.6 mg/dL (8.4-10.2); Carbon Dioxide 24 mmol/L (22-30); Chloride 103 mmol/L (98-107); Glucose 136 mg/dL (74-99); Non-African American GFR(CKD) >90 (>60 ml/min/1.73 sqM); Potassium 3.9 mmol/L (3.5-5.1); Sodium 131 mmol/L (137-145); Total Bilirubin 0.2 mg/dL (0.2-1.3)
[2020-11-04 11:42] LABS: Basophils % (A) 0 %; Eosinophils # (A) 0.1 k/uL (0-0.7); Eosinophils % (A) 1 %; HCT 29.6 % (34.0-46.0); HGB 9.5 gm/dL (11.4-16.0); Lymphocytes # (A) 3.2 k/uL (1.0-4.8); Lymphocytes % (A) 25 %; MCHC 32.1 g/dL (31.0-37.0); MCV 99.8 fL (80.0-100.0); Mean Platelet Volume 7.6; Monocytes # (A) 0.4 k/uL (0-1.0); Monocytes % (A) 3 %; Neutrophils % (A) 70 %; Platelet Count 366 k/uL (150-450); RBC 2.97 m/uL (3.80-5.40); RDW 13.7 % (11.5-15.5); WBC 12.9 k/uL (3.8-10.6)
[2020-11-04 12:00] LABS: Glucose,Whole Blood 108 mg/dL (75-99)
[2020-11-04] MEDS: HYDROmorphone 0.5 MG/0.5 ML SYRINGE IVP PRN ×2 (15:30→20:48)
--- NOTE | 2020-11-04 16:17 | P.PN ---
Subjective Progress Note Date: 11/04/20 CHIEF COMPLAINT: Complex buttock abscess HISTORY OF PRESENT ILLNESS: The patient is a 59 year female presented with necrotizing infection of the right buttock and perineum status debridement 11/02/20. She is postoperative day 2. She is ambulating. She is tolerating diet. No reports of moderate pain. PICC line is being arranged. REVIEW OF ORGAN SYSTEMS: No fevers or chills. No chest pain or shortness of breath. PHYSICAL EXAM: VITALS: Reviewed CONSTITUTIONAL: Well developed and in no acute distress. Nontoxic in appearance. EYES: Conjuctivae without sclera icterus. Extraocular movements grossly intact. HEAD, EARS, NOSE, THROAT: Moist buccal mucosa. Head is atraumatic, normocephalic. Hears conversational speech. No nasal drainage. RESPIRATORY: Non-labored respirations and equal bilateral excursions. No gross wheezes. CARDIOVASCULAR: Regular rate and rhythm. ABDOMEN: Soft. Non-tender. Nondistended. MUSCULOSKELETAL: Nail and fingers with good capillary refill. SKIN: Warm and well perfused with good skin turgor. NEUROLOGIC: Cranial nerves II through XII grossly intact. No focal or lateralizing signs. PSYCH: Appropriate affect. Alert and oriented to person, place and time. Displays appropriate insight. SKIN: Dressing intact along the buttocks. CLINCAL LABS: Reviewed. WBC continued to trend down from over 17,000 on admission to 12,000 today. MICROBIOLOGY: Demonstrate streptococcus infection. PATHOLOGY: Confirms necrotizing infection. ASSESSMENT: 1. Necrotizing infection, right buttock 2. Diabetes type II, uncontrolled with hyperglycemia 3. Tobacco abuse disorder PLAN: 1. Tobacco cessation described for improvement for overall recovery. 2. Agree with evaluation for wound VAC given And dimensions of 7 x 3 x 3 cm left buttock wound. 3. Also agree with IV antibiotics management. 4. We'll follow peripherally. Objective - Vital Signs Vital signs: Vital Signs Temp 97.6 F 11/04/20 12:00 Pulse 51 L 11/04/20 12:00 Resp 18 11/04/20 14:00 BP 90/54 11/04/20 12:00 Pulse Ox 92 L 11/04/20 12:00 Intake & Output 11/03/20 11/04/20 11/04/20 18:59 06:59 18:59 Intake Total 660 480 Balance 660 480 Weight 114 kg 111.6 kg Intake: Oral 660 480 Other: Voiding Method Toilet Toilet Toilet # Voids 1 1 - Labs CBC & Chem 7: 11/04/20 10:01 11/04/20 10:01 Labs: Abnormal Lab Results - Last 24 Hours (Table) 11/03/20 11/03/20 11/03/20 Range/Units 08:27 16:53 20:22 WBC (3.8-10.6) k/uL RBC (3.80-5.40) m/uL Hgb (11.4-16.0) gm/dL Hct (34.0-46.0) % Neutrophils # (1.3-7.7) k/uL Sodium (137-145) mmol/L BUN (7-17) mg/dL Glucose (74-99) mg/dL POC Glucose (mg/dL) 186 H 190 H (75-99) mg/dL Hemoglobin A1c 11.4 H (4.0-6.0) % Calcium (8.4-10.2) mg/dL AST (14-36) U/L Total Protein (6.3-8.2) g/dL Albumin (3.5-5.0) g/dL 11/04/20 11/04/20 11/04/20 Range/Units 05:48 07:13 10:01 WBC (3.8-10.6) k/uL RBC (3.80-5.40) m/uL Hgb (11.4-16.0) gm/dL Hct (34.0-46.0) % Neutrophils # (1.3-7.7) k/uL Sodium 131 L (137-145) mmol/L BUN 20 H (7-17) mg/dL Glucose 136 H (74-99) mg/dL POC Glucose (mg/dL) 136 H 131 H (75-99) mg/dL Hemoglobin A1c (4.0-6.0) % Calcium 7.6 L (8.4-10.2) mg/dL AST 41 H (14-36) U/L Total Protein 5.0 L (6.3-8.2) g/dL Albumin 2.5 L (3.5-5.0) g/dL 11/04/20 11/04/20 Range/Units 10:01 11:58 WBC 12.9 H (3.8-10.6) k/uL RBC 2.97 L (3.80-5.40) m/uL Hgb 9.5 L (11.4-16.0) gm/dL Hct 29.6 L (34.0-46.0) % Neutrophils # 9.0 H (1.3-7.7) k/uL Sodium (137-145) mmol/L BUN (7-17) mg/dL Glucose (74-99) mg/dL POC Glucose (mg/dL) 108 H (75-99) mg/dL Hemoglobin A1c (4.0-6.0) % Calcium (8.4-10.2) mg/dL AST (14-36) U/L Total Protein (6.3-8.2) g/dL Albumin (3.5-5.0) g/dL Microbiology - Last 24 Hours (Table) 11/02/20 21:29 Gram Stain - Preliminary Buttock Tissue Culture - Preliminary Strep agalactiae - (group b) 11/02/20 19:00 Gram Stain - Preliminary Buttock Wound Culture - Preliminary Strep agalactiae - (group b) Gram Neg Bacilli 11/02/20 21:29 Gram Stain - Preliminary Buttock Wound Culture - Preliminary Strep agalactiae - (group b) Gram Neg Bacilli 11/02/20 13:00 Blood Culture - Preliminary Blood No Growth after 24 hours 11/02/20 13:15 Blood Culture - Preliminary Blood No Growth after 24 hours Assessment and Plan (1) Necrotizing fasciitis Current Visit: Yes Status: Acute Code(s): M72.6 - NECROTIZING FASCIITIS SNOMED Code(s): 55134107 (2) Perianal abscess Current Visit: Yes Status: Acute Code(s): K61.0 - ANAL ABSCESS SNOMED Code(s): 64611128 (3) S/P CABG (coronary artery bypass graft) Current Visit: Yes Status: Acute Code(s): Z95.1 - PRESENCE OF AORTOCORONARY BYPASS GRAFT SNOMED Code(s): 996168995 (4) Insulin dependent type 2 diabetes mellitus, uncontrolled Current Visit: Yes Status: Acute Code(s): E11.65 - TYPE 2 DIABETES MELLITUS WITH HYPERGLYCEMIA; Z79.4 - INTERMEDIATE (CURRENT) USE OF INSULIN SNOMED Code(s): 423524333 (5) DKA (diabetic ketoacidoses) Current Visit: Yes Status: Acute Code(s): E11.10 - TYPE 2 DIABETES MELLITUS WITH KETOACIDOSIS WITHOUT COMA SNOMED Code(s): 483236188 (6) Tobacco abuse disorder Current Visit: Yes Status: Acute Code(s): Z72.0 - TOBACCO USE SNOMED Code(s): 426316071
[2020-11-04 16:55] LABS: Glucose,Whole Blood 120 mg/dL (75-99)
--- NOTE | 2020-11-04 17:15 | PN ---
PROGRESS NOTE DATE OF SERVICE: 11/04/2020 This 59-year-old woman who was admitted with acute diabetic ketoacidosis is being closely monitored. The patient also had a right gluteal abscess, for which she underwent debridement at this time. Blood sugars have been closely monitored. No chest pain. No palpitations. Past medical history reviewed. REVIEW OF SYSTEMS: CARDIOVASCULAR SYSTEM: No angina, palpitations. RESPIRATORY SYSTEM: As mentioned earlier. GI: As mentioned earlier. : No dysuria or retention. NERVOUS SYSTEM: No numbness, weakness. CURRENT MEDICATIONS: Reviewed. They include Tylenol, [place], Xanax, Elavil, Lipitor, cefazolin, clindamycin, Dilaudid, NovoLog. PHYSICAL EXAMINATION: Patient alert and oriented x3. Pulse 51, blood pressure 90/54, respiration 18, temperature 97.6, pulse ox 92% on room air. HEENT: Conjunctivae normal. NECK: No jugular venous distention. CARDIOVASCULAR SYSTEM: S1, S2 muffled. RESPIRATORY SYSTEM: Breath sounds diminished at the bases. A few scattered rhonchi and crackles. ABDOMEN: Soft, non-tender. LEGS: No edema. No swelling. NERVOUS SYSTEM: No focal deficit. LABS: WBC 12.2, hemoglobin 10.5. Sodium 131, albumin 2.5. ASSESSMENT: 1. Streptococcus agalactiae and Gram-negative bacilli, sepsis. 2. Acute diabetic ketoacidosis, present on admission. 3. Right gluteal abscess with possible necrotizing fasciitis, status post incision, drainage and excision. 4. Hyponatremia. 5. Increased white count. 6. Relative hypotension, improved. 7. Hypokalemia. 8. Hypomagnesemia. 9. Elevated plasma lactic acid, possibly secondary to sepsis. 10.Increased AST. 11.Hyperlipidemia. 12.History of peripheral neuropathy. 13.Diabetes mellitus, type 2, uncontrolled with hyperglycemia. 14.Cholecystectomy. 15.History of coronary artery disease, coronary artery bypass grafting. 16.History of continued ongoing nicotine dependence. 17.Obesity with body mass index of 31.6. 18.FULL CODE. RECOMMENDATIONS AND DISCUSSION: I recommend to continue current medications, continue with the monitoring, symptomatic treatment. Blood sugars are much better controlled at this time. Will continue to monitor along with Surgery as well as Dr. Peterson of Infectious Disease. Guarded prognosis. Further recommendations to follow. MMODL / IJN: [id number] /
[2020-11-04 20:10] LABS: Glucose,Whole Blood 220 mg/dL (75-99)
[2020-11-04] MEDS: AMITRIPTYLINE HCL 25 MG TAB PO SCH (20:48)
[2020-11-04] MEDS: CEFEPIME 2 GM in SODIUM CHLORIDE 0.9% 100 ML IVPB SCH (23:48)
[2020-11-05] MEDS: CLINDAMYCIN 900 MG in DEXTROSE 5% IN WATER 50 ML IVPB SCH ×6 (04:14→17:26)
[2020-11-05] MEDS: HYDROmorphone 0.5 MG/0.5 ML SYRINGE IVP PRN ×3 (04:21→18:48)
--- NOTE | 2020-11-05 05:58 | PN ---
PROGRESS NOTE DATE OF SERVICE: 11/04/2020 REASON FOR FOLLOWUP: Right gluteal necrotizing infection with strep. INTERVAL HISTORY: The patient is currently afebrile. The patient is breathing comfortably. Patient denies having any chest pain or cough. No abdominal pain or diarrhea. PHYSICAL EXAMINATION: VITAL SIGNS: Blood pressure is 92/59, pulse of 71, temperature 97.7. She is 92% on room air. GENERAL DESCRIPTION: A middle-aged female lying in bed in no distress. RESPIRATORY SYSTEM: Unlabored breathing. Clear to auscultation anteriorly. HEART: S1, S2. Regular rate and rhythm. ABDOMEN: Soft, no tenderness. EXTREMITIES: No edema of the feet. LABS: Wound culture now showing Klebsiella and E coli. Initially was strep. DIAGNOSTIC IMPRESSION AND PLAN: Patient with necrotizing infection involving the right gluteal area, status post extensive surgery. Culture with multiple pathogen including Streptococcus agalactiae and Gram-negative. We will continue the patient on clindamycin, however, switch the cefazolin to the cefepime. The patient will likely need a PICC line for outpatient antibiotic therapy. Continue supportive care. MMODL / IJN: [id number] /
[2020-11-05] MEDS: PANTOPRAZOLE 40 MG TABLET PO SCH (06:53)
[2020-11-05] MEDS: LEVOTHYROXINE 75 MCG TAB PO SCH (06:53)
[2020-11-05 07:10] LABS: Glucose,Whole Blood 111 mg/dL (75-99)
[2020-11-05] MEDS: INSULIN ASPART (NovoLOG) 100 UNIT/ML VIAL SQ SCH ×7 (07:14→21:44)
[2020-11-05 09:13] LABS: African American GFR (CKD) >90 (>60 ml/min/1.73 sqM); Non-African American GFR(CKD) >90 (>60 ml/min/1.73 sqM)
[2020-11-05] MEDS: ATORVASTATIN 40 MG TAB PO SCH (10:04)
[2020-11-05] MEDS: HEPARIN SODIUM,PORCINE/PF 5,000 UNIT/0.5 ML SYRINGE SQ SCH ×2 (10:04→21:55)
[2020-11-05] MEDS: CEFEPIME 2 GM in SODIUM CHLORIDE 0.9% 100 ML IVPB SCH ×2 (10:04→21:56)
[2020-11-05] MEDS: NICOTINE 14MG/24HR PATCH TRANSDERM SCH (10:04)
[2020-11-05 12:01] LABS: Glucose,Whole Blood 271 mg/dL (75-99)
[2020-11-05] MEDS: INSULIN DETEMIR (LEVEMIR) 100 UNIT/ML SYR SQ SCH (12:33)
--- NOTE | 2020-11-05 12:43 | P.PN ---
Progress Note - Text Progress Note Date: 11/05/20 Patient has complaints of postoperative right buttock pain. She has just received wound care. Per nursing staff the wound is improving. There is less of colitis. The patient will continue receive IV antibiotics.
[2020-11-05] MEDS: HYDROcodone/APAP 5-325MG 1 EACH TAB PO PRN (14:17)
[2020-11-05 17:06] LABS: Glucose,Whole Blood 304 mg/dL (75-99)
--- NOTE | 2020-11-05 18:27 | PN ---
PROGRESS NOTE DATE OF SERVICE: 11/05/2020 This 59-year-old woman was admitted with significant gluteal abscess and possible necrotic fascitis. Strep agalactiae grown from the culture. The blood sugar is also being evaluated at this time. Sugars [address] Lamb and Dr. Peterson is following the patient closely. PAST MEDICAL HISTORY: Reviewed. REVIEW OF SYSTEMS: CARDIOVASCULAR SYSTEM: No angina. RESPIRATION: As mentioned earlier. GI as mentioned earlier. : No dysuria. Nervous system: No numbness, weakness. CURRENT MEDICATIONS: Reviewed and include current medications are: Tylenol, [place], Elavil, Lipitor, Cefepime, clindamycin, Narcan and Habitrol. PHYSICAL EXAMINATION: The patient is alert and oriented times three. Pulse 72, blood pressure 112/52, respiration rate 20, temperature 98.2, pulse ox 98% on room air. HEENT: Conjunctivae normal. NECK: No JVD. CARDIOVASCULAR: S1, S2 muffled. RESPIRATORY: Breath sounds diminished in the bases. A few scattered rhonchi and crackles. ABDOMEN: Soft, nontender. LEGS: No edema. No swelling. NERVOUS SYSTEM: No focal deficits. LABS: WBC 12.2, hemoglobin 9.5, otherwise albumin is 2.5. ASSESSMENT: 1. Acute right gluteal necrotizing fasciitis secondary to strep agalactiae with severe sepsis. 2. Acute diabetic ketoacidosis present on admission. 3. Diabetes mellitus type 2, uncontrolled with hyperglycemia. 4. Severe pain. 5. Hyponatremia. 6. Increased WBC. 7. Relative hypotension, improved. 8. Hypokalemia. 9. Hypomagnesemia. 10.Elevated plasma lactic acidosis secondary to sepsis. 11.Increased AST. 12.Hyperlipidemia. 13.History of peripheral neuropathy. 14.Diabetes mellitus type 2 uncontrolled with hyperglycemia. 15.Cholecystectomy. 16.History of coronary artery disease, coronary artery bypass grafting. 17.History of continued ongoing nicotine dependence. 18.Obesity with body mass index of 35.6. 19.FULL CODE. RECOMMENDATIONS AND DISCUSSION: Recommend to continue current medication, continue to monitor and symptomatic treatment. Otherwise, at this time, I would increase the dose of Lantus to 50 units daily and continue to monitor. Guarded prognosis because of the multiple complex medical issues and further recommendations to follow. MMODL / IJN: [id number] /
--- NOTE | 2020-11-05 18:38 | PN ---
PROGRESS NOTE DATE OF SERVICE: 11/05/2020 REASON FOR FOLLOWUP: Right gluteal necrotizing infection. INTERVAL HISTORY: Patient is currently afebrile. The patient complained of some head congestion and cough. No chest pain, shortness of breath. No abdominal pain or any worsening pain to the right gluteal area. PHYSICAL EXAMINATION: Blood pressure 131/73, pulse of 66, temperature 98.2. She is 95% on room air. General description is a middle-aged female lying in bed in no distress. Respiratory system: Unlabored breathing, clear to auscultation anteriorly. Heart S1, S2. Regular rate and rhythm. ABDOMEN: Soft, no tenderness. LABS: No new labs have been obtained today. DIAGNOSTIC IMPRESSION AND PLAN: Patient with right gluteal necrotizing infection status post extensive surgery. Culture with Klebsiella Enterococcus agalactiae. Patient is covered with cefepime and clindamycin to continue. Repeat the blood work tomorrow. PICC line antibiotics. Continue with supportive care. MMODL / IJN: [id number] /
[2020-11-05 20:36] LABS: Glucose,Whole Blood 87 mg/dL (75-99)
[2020-11-05] MEDS: AMITRIPTYLINE HCL 25 MG TAB PO SCH (21:56)
[2020-11-06] MEDS: CLINDAMYCIN 900 MG in DEXTROSE 5% IN WATER 50 ML IVPB SCH ×4 (03:25→10:39)
[2020-11-06] MEDS: LEVOTHYROXINE 75 MCG TAB PO SCH (06:27)
[2020-11-06 07:05] LABS: Glucose,Whole Blood 101 mg/dL (75-99)
[2020-11-06] MEDS: PANTOPRAZOLE 40 MG TABLET PO SCH (07:49)
[2020-11-06] MEDS: HEPARIN SODIUM,PORCINE/PF 5,000 UNIT/0.5 ML SYRINGE SQ SCH ×2 (07:49→21:51)
[2020-11-06] MEDS: NICOTINE 14MG/24HR PATCH TRANSDERM SCH ×2 (07:49→08:09)
[2020-11-06] MEDS: INSULIN DETEMIR (LEVEMIR) 100 UNIT/ML SYR SQ SCH (07:49)
[2020-11-06] MEDS: INSULIN ASPART (NovoLOG) 100 UNIT/ML VIAL SQ SCH ×7 (07:50→21:50)
[2020-11-06] MEDS: CEFEPIME 2 GM in SODIUM CHLORIDE 0.9% 100 ML IVPB SCH ×2 (07:50→21:51)
[2020-11-06] MEDS: ATORVASTATIN 40 MG TAB PO SCH (07:58)
[2020-11-06] MEDS: HYDROcodone/APAP 5-325MG 1 EACH TAB PO PRN ×2 (07:58→17:43)
[2020-11-06 10:07] LABS: Basophils # (A) 0.05 X 10*3/uL (0.00-0.10); Basophils % (A) 0.4 %; Eosinophils # (A) 0.31 X 10*3/uL (0.04-0.35); Eosinophils % (A) 2.6 %; HCT 31.9 % (37.2-46.3); HGB 10.6 g/dL (12.0-15.0); Lymphocytes # (A) 3.47 X 10*3/uL (0.90-5.00); Lymphocytes % (A) 28.9 %; MCH 32.4 pg (27.0-32.0); MCHC 33.2 g/dL (32.0-37.0); MCV 97.6 fL (80.0-97.0); Mean Platelet Volume 9.5 fL (9.5-12.2); Monocytes # (A) 0.54 X 10*3/uL (0.20-1.00); Monocytes % (A) 4.5 %; Neutrophils # (A) 7.08 X 10*3/uL (1.80-7.70); Neutrophils % (A) 58.9 %; Platelet Count 492 X 10*3/uL (140-440); RBC 3.27 X 10*6/uL (4.10-5.20); RDW 13.3 % (11.5-14.5); WBC 12.02 X 10*3/uL (4.50-10.00)
[2020-11-06 11:28] LABS: African American GFR (CKD) 116.4 (60.0-200.0); Albumin 3.5 g/dL (3.80-4.90); Albumin/Globulin Ratio 1.67 (1.60-3.17); Anion Gap 6.6 mmol/L (4.00-12.00); BUN/Creat Ratio 13.33 Ratio (12.00-20.00); C Reactive Protein 6.9 mg/dL (0.0-0.8); Calcium 8.5 mg/dL (8.7-10.3); Carbon Dioxide 26.4 mmol/L (21.6-31.8); Globulin 2.1 g/dL (1.6-3.3); Non-African American GFR(CKD) 100.5 (60.0-200.0); Potassium 4.1 mmol/L (3.5-5.5); Total Bilirubin 0.3 mg/dL (0.3-1.2); Total Protein 5.6 g/dL (6.2-8.2)
[2020-11-06 11:37] LABS: Glucose,Whole Blood 224 mg/dL (75-99)
[2020-11-06] MEDS: metroNIDAZOLE 500 MG TAB PO SCH ×2 (15:11→21:50)
--- NOTE | 2020-11-06 15:38 | P.PN ---
Progress Note - Text Progress Note Date: 11/06/20 Patient feels better. On exam her vital signs are stable. Abdomen soft. Perineal wound is healing. There is decreased from patient. Status post incision and drainage of peritonsillar abscess. Patient will receive local wound care.
[2020-11-06 17:15] LABS: Glucose,Whole Blood 108 mg/dL (75-99)
--- NOTE | 2020-11-06 17:25 | PN ---
PROGRESS NOTE DATE OF SERVICE: 11/06/2020 REASON FOR FOLLOWUP: Right gluteal necrotizing infection. INTERVAL HISTORY: The patient is currently afebrile. Patient is breathing comfortably. The patient denies having any chest pain, shortness of breath or abdominal pain or pain to the gluteal area. PHYSICAL EXAMINATION: Blood pressure 149/71, pulse of 73, temperature 97.7, she is 95% on room air. GENERAL DESCRIPTION: A middle-aged female lying in bed in no distress. RESPIRATORY SYSTEM: Unlabored breathing, clear to auscultation anteriorly. HEART: S1, S2. Regular rate and rhythm. ABDOMEN: Soft, no tenderness. LABS: Hemoglobin is 10.1, white count 12.2, BUN of 8, creatinine 0.6. Cultures positive for Klebsiella, strep and anaerobes. DIAGNOSTIC IMPRESSION AND PLAN: Patient with right gluteal necrotizing infection, status post debridement. Multiple pathogens. Patient on cefepime. Will add Flagyl. Discontinue clindamycin. Continue outpatient antibiotics. Continue supportive care. MMODL / IJN: [id number] /
--- NOTE | 2020-11-06 17:53 | PN ---
PROGRESS NOTE DATE OF SERVICE: 11/06/2020 INTERVAL HISTORY: This is a 59-year-old woman who was admitted with significant gluteal infection and necrotizing fascitis. The patient is also had uncontrolled diabetes. No chest pain. No palpitations. No fever. Packing has been done. PHYSICAL EXAMINATION: GENERAL: Patient is alert and oriented times three. VITAL SIGNS: Pulse 73, blood pressure 130/70, respirations 19, temperature 97.7, pulse ox 100% on room air. HEENT: Conjunctivae normal. Oral mucosa moist. NECK: No jugular venous distention. No carotid bruits. RESPIRATORY: Breath sounds diminished at the bases. A few scattered rhonchi. HEART: S1 and S2, muffled. ABDOMEN: Soft, no tenderness. Obese. EXTREMITIES: No edema, no swelling. NERVOUS: No focal deficits. LABORATORY DATA: D-dimer is 1.01. Otherwise glucose 224. ASSESSMENT: 1. Acute right gluteal necrotizing fascitis secondary to strep agalactiae with Klebsiella pneumonia and anaerobic gram-negative bacilli and Klebsiella oxytoca, polymicrobial with severe sepsis present on admission. 2. Acute diabetic ketosis present on admission. 3. Diabetes mellitus type 2, uncontrolled with hyperglycemia. 4. Severe pain. 5. Hyponatremia. 6. Increased WBC. 7. Relative hypotension improved. 8. Hypokalemia. 9. Hypomagnesemia. 10.Elevated plasma lactic acid secondary to sepsis. 11.Increased AST. 12.Hyperlipidemia. 13.History of peripheral neuropathy. 14.Diabetes mellitus type 2 uncontrolled with hyperglycemia. 15.Cholecystectomy. 16.History of CAD, CABG. 17.History of continued ongoing nicotine dependence. 18.Obesity with body mass index of 35.6. 19.FULL CODE. RECOMMENDATIONS AND DISCUSSION: Recommend to continue current management and continue with symptomatic treatment. Continue the antibiotics. I would continue with insulin. Continue with the rest of the medications. Continue with IV antibiotics. Dr. Peterson is planning PICC line. Local treatment. Arrange home care. Guarded prognosis because of multiple complex medical issues. Further recommendations to follow. MMODL / IJN: [id number] /
[2020-11-06 20:12] LABS: Glucose,Whole Blood 272 mg/dL (75-99)
[2020-11-06] MEDS: AMITRIPTYLINE HCL 25 MG TAB PO SCH (21:53)
[2020-11-07] MEDS: LEVOTHYROXINE 75 MCG TAB PO SCH (05:43)
[2020-11-07 07:24] LABS: Glucose,Whole Blood 123 mg/dL (75-99)
[2020-11-07 07:39] VITALS: BP 127/68; PULSE 61; RESP 16; TEMP 98.3
[2020-11-07] MEDS: CEFEPIME 2 GM in SODIUM CHLORIDE 0.9% 100 ML IVPB SCH (08:17)
[2020-11-07] MEDS: HYDROcodone/APAP 5-325MG 1 EACH TAB PO PRN (08:18)
[2020-11-07] MEDS: PANTOPRAZOLE 40 MG TABLET PO SCH (08:18)
[2020-11-07] MEDS: ATORVASTATIN 40 MG TAB PO SCH (08:18)
[2020-11-07] MEDS: INSULIN DETEMIR (LEVEMIR) 100 UNIT/ML SYR SQ SCH (08:18)
[2020-11-07] MEDS: metroNIDAZOLE 500 MG TAB PO SCH (08:18)
[2020-11-07] MEDS: INSULIN ASPART (NovoLOG) 100 UNIT/ML VIAL SQ SCH ×4 (08:18→13:03)
[2020-11-07] MEDS: HEPARIN SODIUM,PORCINE/PF 5,000 UNIT/0.5 ML SYRINGE SQ SCH (08:18)
[2020-11-07] MEDS: NICOTINE 14MG/24HR PATCH TRANSDERM SCH (08:19)
--- NOTE | 2020-11-07 10:49 | P.PN ---
Subjective Progress Note Date: 11/07/20 CHIEF COMPLAINT: Complex buttock abscess HISTORY OF PRESENT ILLNESS: The patient is a 59 year female presented with necrotizing infection of the right buttock and perineum status debridement 11/02/20. Her pain is well-controlled. No fevers or chills. REVIEW OF ORGAN SYSTEMS: No fevers or chills. No chest pain or shortness of breath. PHYSICAL EXAM: VITALS: Reviewed CONSTITUTIONAL: Well developed and in no acute distress. Nontoxic in appearance. EYES: Conjuctivae without sclera icterus. Extraocular movements grossly intact. HEAD, EARS, NOSE, THROAT: Moist buccal mucosa. Head is atraumatic, normocephalic. Hears conversational speech. No nasal drainage. RESPIRATORY: Non-labored respirations and equal bilateral excursions. No gross wheezes. CARDIOVASCULAR: Regular rate and rhythm. ABDOMEN: Soft. Non-tender. Nondistended. MUSCULOSKELETAL: Nail and fingers with good capillary refill. SKIN: Warm and well perfused with good skin turgor. NEUROLOGIC: Cranial nerves II through XII grossly intact. No focal or lateralizing signs. PSYCH: Appropriate affect. Alert and oriented to person, place and time. Displays appropriate insight. SKIN: Dressing intact along the buttocks. CLINCAL LABS: Reviewed. WBC over 17,000 on admission now 12,000. ASSESSMENT: 1. Necrotizing infection, right buttock 2. Diabetes type II, uncontrolled with hyperglycemia 3. Tobacco abuse disorder PLAN: 1. For multi-microbial infection management with IV antibiotics by infectious disease Objective - Vital Signs Vital signs: Vital Signs Temp 98.3 F 11/07/20 06:48 Pulse 61 11/07/20 06:48 Resp 16 11/07/20 06:48 BP 127/68 11/07/20 06:48 Pulse Ox 97 11/07/20 06:48 Intake & Output 11/06/20 11/07/20 11/07/20 18:59 06:59 18:59 Intake Total 660 240 Balance 660 240 Weight 107.6 kg Intake: Oral 660 240 Other: # Voids 3 2 - Labs CBC & Chem 7: 11/06/20 05:41 11/06/20 05:41 Labs: Abnormal Lab Results - Last 24 Hours (Table) 11/06/20 11/06/20 11/06/20 Range/Units 05:41 05:41 11:35 ESR 70 H (0-30) mm/Hr BUN 8.0 L (9.0-27.0) mg/dL POC Glucose (mg/dL) 224 H (75-99) mg/dL Calcium 8.5 L (8.7-10.3) mg/dL C-Reactive Protein 6.9 H (0.0-0.8) mg/dL Total Protein 5.6 L (6.2-8.2) g/dL Albumin 3.50 L (3.80-4.90) g/dL 11/06/20 11/06/20 11/07/20 Range/Units 17:13 20:10 06:52 ESR (0-30) mm/Hr BUN (9.0-27.0) mg/dL POC Glucose (mg/dL) 108 H 272 H 123 H (75-99) mg/dL Calcium (8.7-10.3) mg/dL C-Reactive Protein (0.0-0.8) mg/dL Total Protein (6.2-8.2) g/dL Albumin (3.80-4.90) g/dL Microbiology - Last 24 Hours (Table) 11/02/20 13:15 Blood Culture - Preliminary Blood No Growth after 96 hours 11/02/20 13:00 Blood Culture - Preliminary Blood No Growth after 96 hours Assessment and Plan (1) Necrotizing fasciitis Current Visit: Yes Status: Acute Code(s): M72.6 - NECROTIZING FASCIITIS SNOMED Code(s): 30655583 (2) Perianal abscess Current Visit: Yes Status: Acute Code(s): K61.0 - ANAL ABSCESS SNOMED Code(s): 60294879 (3) S/P CABG (coronary artery bypass graft) Current Visit: Yes Status: Acute Code(s): Z95.1 - PRESENCE OF AORTOCORONARY BYPASS GRAFT SNOMED Code(s): 439634890 (4) Insulin dependent type 2 diabetes mellitus, uncontrolled Current Visit: Yes Status: Acute Code(s): E11.65 - TYPE 2 DIABETES MELLITUS WITH HYPERGLYCEMIA; Z79.4 - [facility] (CURRENT) USE OF INSULIN SNOMED Code(s): 922266179 (5) DKA (diabetic ketoacidoses) Current Visit: Yes Status: Acute Code(s): E11.10 - TYPE 2 DIABETES MELLITUS WITH KETOACIDOSIS WITHOUT COMA SNOMED Code(s): 914189995 (6) Tobacco abuse disorder Current Visit: Yes Status: Acute Code(s): Z72.0 - TOBACCO USE SNOMED Code(s): 365668786
[2020-11-07] MEDS ORDERED: LIDOCAINE 1% INJ 10MG/ML (20 ML MDV) SQ ONE (10:55)
[2020-11-07 12:04] LABS: Glucose,Whole Blood 180 mg/dL (75-99)
--- NOTE | 2020-11-07 14:04 | IR ---
EXAMINATION TYPE: IR cvc insert >=5 years DATE OF EXAM: 11/07/2020 COMPARISON: NONE CLINICAL HISTORY: Infection Needs long-term intravenous access for antibiotics. PROCEDURE: Hand hygiene obtained with soap and water and alcohol-based hand rub. After informed consent, the skin overlying the left basilic vein was localized with ultrasound and no harmeet to be compressible and patent. An ultrasound image was obtained and submitted on the patient's c padilla. The overlying skin was prepped and draped and Lidocaine was used for local anesthesia. A skin americo was made with a scalpel. Access was gained to the vein under ultrasound guidance with a 21 gau ge needle and a 0.018 inch wire was advanced. Access site was dilated with Peel-Away sheath and cath eter tailored to the appropriate length and advanced such that the distal tip is at the cavoatrial ju nction. Spot image was obtained verifying placement. Catheter was fixed to the skin and a sterile d ressing was placed following hemostasis. Catheter was aspirated and flushed with saline. Patient wa s discharged in stable condition without complication. Maximal barrier technique is utilized. Ultras ound image is documented on the chart. Ultrasound used with sterile technique. Fluoro time and fluoroscopic images submitted to document procedure: 148 intraoperative images, 1.1 m inutes fluoroscopy time IMPRESSION: STATUS POST ULTRASOUND AND FLUOROSCOPIC GUIDED PICC LINE PLACEMENT, READY FOR USE. THIS PROCEDURE WAS PERFORMED BY THE UNDERSIGNED.
--- NOTE | 2020-11-07 14:58 | PN ---
PROGRESS NOTE DATE OF SERVICE: 11/07/2020. REASON FOR FOLLOWUP: Right gluteal necrotizing infection. INTERVAL HISTORY: Patient is currently afebrile. The patient is breathing comfortably. The patient denies having any chest pain, shortness of breath or cough. No abdominal pain or pain to the gluteal area. PHYSICAL EXAMINATION: Blood pressure 127/68 with a pulse of 71, temperature 98.3. She is 97% on room air. General description: The patient is a middle-aged female lying in bed in no distress. Respiratory system: Unlabored breathing, clear to auscultation anteriorly. Heart S1, S2. Regular rate and rhythm. Abdomen soft, no tenderness. The right gluteal wound with minimal slough and surrounding induration and swelling has improved. No drainage. LABS: No new labs have been obtained today. Cultures have been positive for anaerobic gram- negative strep and Klebsiella pneumoniae. DIAGNOSTIC IMPRESSION AND PLAN: Patient with right gluteal necrotizing infection, status post extensive debridement. Recommend local wound care with wound VAC. Antibiotic transitioned to Rocephin 2 grams daily and oral Flagyl 5 mg p.o. q.8 hours for 2 weeks. Local wound care with wound VAC and advised to follow up in [facility] next week. Questions and concerns have been answered. MMODL / IJN: [id number] /
--- NOTE | 2020-11-07 15:47 | P.DS ---
Providers Date of admission: 11/02/20 14:17 Expected date of discharge: 11/07/20 Attending physician: Sky Mackenzie Consults: 11/02/20 14:18 Consult Physician Routine Consulting Provider: Augustina Lamb Consult Reason/Comments: perianal abscess Do you want consulting provider notified?: Yes 11/02/20 18:19 Consult Physician Routine Consulting Provider: Nehal Peterson Consult Reason/Comments: nerotizing fascitis? buttock left Do you want consulting provider notified?: Yes 11/02/20 19:49 Consult Physician Routine Consulting Provider: [facility] Consult Reason/Comments: [facility] Do you want consulting provider notified?: Yes Primary care physician: Arturo Upton Hospital Course: Final diagnosis Acute right gluteal necrotizing fasciitis secondary to strep agalactiae with Klebsiella pneumonia and anaerobic gram-negative bacilli and Klebsiella oxytoca, polymicrobial with severe sepsis, present on admission Acute diabetic ketosis present on admission Diabetes mellitus type 2, uncontrolled with hyperglycemia Severe pain Hyponatremia Increased white blood count Relative hypotension improved Hypokalemia Hypomagnesemia elevated plasma lactic acid secondary to sepsis Increased AST Hyperlipidemia History of peripheral neuropathy Diabetes mellitus type 2 uncontrolled with hyperglycemia Cholecystectomy History of CAD, CABG History of continued ongoing nicotine dependence Obesity with body mass index of 35.6 Full code Discharge disposition Patient is being discharged in a stable condition with guarded prognosis to home and will continue with home care in the outpatient setting. Patient will follow-up with Dr. Upton in the outpatient setting upon discharge. Patient also instructed to follow-up with surgery Dr. Murphy and infectious disease Dr. Peterson in the outpatient setting. Patient will continue with IV antibiotics in the form of ceftriaxone in the outpatient setting. Total time taken is greater than 35 minutes. Hospital Course This is a 59-year-old female who was recently admitted with significant gluteal infection and necrotizing fasciitis and being closely monitored. Patient being followed by infectious disease along with surgery and recently underwent debridement of the right buttock gluteal infection. Patient has been maintained on IV antibiotics and will continue with IV ceftriaxone and close follow-up with the wound center with Dr. Peterson along with surgery Dr. Murphy this week. Patient was continued on insulin along with long acting as she also has uncontrolled diabetes with elevated blood sugars. Patient will continue on long-acting 50 units at night along with pre-meal and sliding scale. Instructed to continue to monitor blood sugars before meals and at bedtime and keep a diary for primary care follow-up this week. Patient also instructed to follow a consistent carb diet. Currently no reports of chest pain, shortness of breath, or palpitations. Patient is afebrile. No reports of nausea or vomiting and patient is tolerating diet. Patient will be discharged home today. Guarded prognosis. On exam vital signs are stable. Cardio S1, S2 are muffled. Respiratory system shows diminished breath sounds at the bases with no wheezing or rhonchi noted. Abdomen is soft and obese, and nontender. Nervous system shows no focal deficits. Please refer to medication reconciliation sheet for a list of medications. Patient Condition at Discharge: Stable Plan - Discharge Summary Discharge Rx Participant: No New Discharge Prescriptions: New Acetaminophen Tab [Tylenol] 500 mg PO Q6HR PRN tab PRN Reason: Fever and/ or Mild Pain cefTRIAXone [Rocephin] 2,000 mg IVP Q24HR #14 vial Nicotine 14Mg/24Hr Patch [Habitrol] 1 patch TRANSDERM DAILY #20 patch Insulin Detemir (Levemir) [Levemir] 50 unit SQ DAILY@0700 30 Days #15 syr HYDROcodone/APAP 5-325MG [[place] 5-325] 1 each PO Q6HR PRN #12 tab PRN Reason: Pain INSULIN ASPART (NovoLOG) [NovoLOG (formulary)] 0 unit SQ ACHS 30 Days #4 vial metroNIDAZOLE [Flagyl] 500 mg PO Q8HR #42 tab Continue Omeprazole [PriLOSEC] 20 mg PO AC-BRKFST Amitriptyline HCl [Elavil] 75 mg PO HS Atorvastatin [Lipitor] 40 mg PO DAILY Levothyroxine Sodium 150 mcg PO DAILY Insulin Aspart [NovoLOG Flexpen] 12 units SQ AC-TID Discontinued Insulin Degludec [Tresiba Flextouch U-100] 12 units SQ HS Discharge Medication List Amitriptyline HCl [Elavil] 75 mg PO HS 04/09/15 [History] Omeprazole [PriLOSEC] 20 mg PO AC-BRKFST 04/09/15 [History] Atorvastatin [Lipitor] 40 mg PO DAILY 11/02/20 [History] Insulin Aspart [NovoLOG Flexpen] 12 units SQ AC-TID 11/02/20 [History] Levothyroxine Sodium 150 mcg PO DAILY 11/02/20 [History] Acetaminophen Tab [Tylenol] 500 mg PO Q6HR PRN tab 11/07/20 [Rx] HYDROcodone/APAP 5-325MG [[place] 5-325] 1 each PO Q6HR PRN #12 tab 11/07/20 [Rx] INSULIN ASPART (NovoLOG) [NovoLOG (formulary)] 0 unit SQ ACHS 30 Days #4 vial 11/07/20 [Rx] Insulin Detemir (Levemir) [Levemir] 50 unit SQ DAILY@0700 30 Days #15 syr 11/07/20 [Rx] Nicotine 14Mg/24Hr Patch [Habitrol] 1 patch TRANSDERM DAILY #20 patch 11/07/20 [Rx] cefTRIAXone [Rocephin] 2,000 mg IVP Q24HR #14 vial 11/07/20 [Rx] metroNIDAZOLE [Flagyl] 500 mg PO Q8HR #42 tab 11/07/20 [Rx] Follow up Appointment(s)/Referral(s): [facility], [NON-STAFF] - 11/08/20 Arturo Upton MD [Primary Care Provider] - 1-2 days Augustina Lamb MD [STAFF PHYSICIAN] - 11/17/20 [facility],Infusion [NON-STAFF] - 11/08/20 [facility] [NON-STAFF] - (Take script for wound care to have wound supplies ordered) Nehal Peterson MD [STAFF PHYSICIAN] - 1 Week Ambulatory/Diagnostic Orders: Complete Blood Count w/diff [LAB.AMB] Time Frame: 3 Days, Location: None Selected Activity/Diet/Wound Care/Special Instructions: Activity Limited until follow-up Follow-up with primary care provider upon discharge Follow-up with home care along with wound care And tenuous IV antibiotics per infectious disease Follow-up with infectious disease in 1-2 weeks Continue with consistent carb diet Continue to monitor blood sugars before meals and at bedtime and keep a diary for primary care follow-up Repeat labs in 2-3 days Wound Care - daily cleansing to the coccyx sacrum area Hydrofera Blue dressing was changed every 48 hour Plan for wound VAC application once arrange, advised to follow-up with Dr. Peterson in the wound care center Call [phone] to make an appointment Discharge Disposition: HOME WITH HOME HEALTH SERVICES
[2020-11-08 14:20] LABS: Erythrocyte Sedimentation Rate 70 mm/Hr (0-30)
== END 2020-11-07 13:50 | disposition home health service (06) | DRG 853 ==
LOC: EC 11:49 → 3SCARD 14:17 → 6NMEDSUR 11-05 20:07
PROVIDERS: ADMIT Hospitalist; ATTEND Hospitalist
PROC: 0KBN0ZZ Excision of Right Hip Muscle, Open Approach (ICD-10-PCS; principal; 2020-11-02 20:14)
PROC: 0KDN0ZZ Extraction of Right Hip Muscle, Open Approach (ICD-10-PCS; principal; 2020-11-02 20:14)
PROC: 02HV33Z Insertion of Infusion Device into Superior Vena Cava, Percutaneous Approach (ICD-10-PCS; 2020-11-07)
DX: A40.8 Other streptococcal sepsis (principal); E11.10 Type 2 diabetes mellitus with ketoacidosis without coma; M72.6 Necrotizing fasciitis; E87.1 Hypo-osmolality and hyponatremia; L03.317 Cellulitis of buttock; K61.2 Anorectal abscess; L02.31 Cutaneous abscess of buttock; E87.2 Acidosis; R65.20 Severe sepsis without septic shock; E03.9 Hypothyroidism, unspecified; E11.42 Type 2 diabetes mellitus with diabetic polyneuropathy; E66.09 Other obesity due to excess calories; E78.5 Hyperlipidemia, unspecified; E83.42 Hypomagnesemia; E87.6 Hypokalemia; F17.210 Nicotine dependence, cigarettes, uncomplicated; I11.9 Hypertensive heart disease without heart failure; I25.10 Atherosclerotic heart disease of native coronary artery without angina pectoris; B96.1 Klebsiella pneumoniae [K. pneumoniae] as the cause of diseases classified elsewhere; K21.9 Gastro-esophageal reflux disease without esophagitis; Z68.31 Body mass index [BMI] 31.0-31.9, adult; Z79.4 Long term (current) use of insulin; Z20.822 Contact with and (suspected) exposure to COVID-19; Z79.890 Hormone replacement therapy; Z79.899 Other long term (current) drug therapy; Z91.041 Radiographic dye allergy status; Z95.1 Presence of aortocoronary bypass graft; I49.3 Ventricular premature depolarization; Z90.49 Acquired absence of other specified parts of digestive tract
CPT/HCPCS: 36415; 36573; 71045; 72193; 80048; 80051; 80053; 81001; 82009; 82565; 82947; 83036; 83605; 83615; 83735; 84100; 84520; 85025; 85379; 85610; 85652; 86140; 87040; 87070; 87075; 87077; 87186; 87205; 87635; 88304; 93005; 96365; 96375; 99284

== ENCOUNTER 2022-02-22 13:19 | Inpatient (IN) | payer BC ==
[2022-02-22 13:47] LABS: Glucose,Whole Blood 193 mg/dL (70-110)
[2022-02-22] MEDS ORDERED: FAMOTIDINE 20 MG/2 ML VIAL IV STA (13:53)
[2022-02-22] MEDS ORDERED: methylPREDNISolone SOD SUCCI 125 MG/2 ML VIAL IV STA (13:53)
[2022-02-22] MEDS ORDERED: diphenhydrAMINE 50 MG/ML 1 ML VIAL IVP STA (13:53)
--- NOTE | 2022-02-22 13:56 | ED ---
General Adult HPI - General Chief complaint: Neuro Symptoms/Deficit Stated complaint: poss stroke,facial, balance arm weakness Time Seen by Provider: 02/22/22 13:41 Source: patient, RN notes reviewed Mode of arrival: ambulatory Limitations: no limitations - History of Present Illness Initial comments: Patient is a pleasant 61-year-old female presenting to the emergency department with concerns for possible stroke. Onset of symptoms was 11:30 AM. Patient was at work. Patient had difficulty with walking and felt off balance. Patient denies feeling dizzy or spinning type sensation. No history of similar symptoms previously. Patient also has concerns that her right side of her face is droopy. Patient does have mild headache. No extremity weakness. No loss of sensation. - Related Data Home Medications Medication Instructions Recorded Confirmed Amitriptyline HCl [Elavil] 75 mg PO HS 04/09/15 11/02/20 Omeprazole [PriLOSEC] 20 mg PO AC-BRKFST 04/09/15 11/02/20 Atorvastatin [Lipitor] 40 mg PO DAILY 11/02/20 11/02/20 Insulin Aspart [NovoLOG Flexpen] 12 units SQ AC-TID 11/02/20 11/02/20 Levothyroxine Sodium 150 mcg PO DAILY 11/02/20 11/02/20 Previous Rx's Medication Instructions Recorded Acetaminophen Tab [Tylenol] 500 mg PO Q6HR PRN tab 11/07/20 HYDROcodone/APAP 5-325MG [[place] 1 each PO Q6HR PRN #12 tab 11/07/20 5-325] INSULIN ASPART (NovoLOG) [NovoLOG 0 unit SQ ACHS 30 Days #4 vial 11/07/20 (formulary)] Insulin Detemir (Levemir) [Levemir] 50 unit SQ DAILY@0700 30 Days #15 11/07/20 syr Nicotine 14Mg/24Hr Patch [Habitrol] 1 patch TRANSDERM DAILY #20 patch 11/07/20 cefTRIAXone [Rocephin] 2,000 mg IVP Q24HR #14 vial 11/07/20 metroNIDAZOLE [Flagyl] 500 mg PO Q8HR #42 tab 11/07/20 Ticagrelor [Brilinta] 90 mg PO BID #14 tab 02/22/22 Allergies Allergy/AdvReac Type Severity Reaction Status Date / Time Iodinated Contrast Media Allergy Rash/Hives Verified 08/29/21 18:59 Review of Systems ROS Statement: Those systems with pertinent positive or pertinent negative responses have been documented in the HPI. ROS Other: All systems not noted in ROS Statement are negative. Constitutional: Denies: fever Eyes: Denies: eye pain ENT: Denies: ear pain Respiratory: Denies: cough Cardiovascular: Denies: chest pain Endocrine: Denies: fatigue Gastrointestinal: Denies: abdominal pain Genitourinary: Denies: dysuria Musculoskeletal: Denies: back pain Skin: Denies: rash Neurological: Reports: as per HPI, headache, weakness, abnormal gait Past Medical History Past Medical History: Hyperlipidemia Additional Past Medical History / Comment(s): neuropathy History of Any Multi-Drug Resistant Organisms: None Reported Past Surgical History: Cholecystectomy, Coronary Bypass/CABG Past Anesthesia/Blood Transfusion Reactions: No Reported Reaction Past Psychological History: No Psychological Hx Reported Smoking Status: Current every day smoker Past Alcohol Use History: None Reported Past Drug Use History: None Reported - Past Family History Father Family Medical History: Coronary Artery Disease (CAD), Diabetes Mellitus Mother Family Medical History: Hypertension General Exam Limitations: no limitations General appearance: alert, in no apparent distress Head exam: Present: normocephalic Eye exam: Present: normal appearance, PERRL, EOMI ENT exam: Present: normal oropharynx Neck exam: Present: normal inspection Respiratory exam: Present: normal lung sounds bilaterally Cardiovascular Exam: Present: regular rate, normal rhythm GI/Abdominal exam: Present: soft. Absent: tenderness Extremities exam: Present: normal inspection Neurological exam: Present: alert, oriented X3, CN II-XII intact (Except for right facial droop. No weakness of the forehead or eyelid), motor sensory deficit (Minimal right upper extremity drift) Psychiatric exam: Present: normal affect, normal mood Skin exam: Present: normal color Course Vital Signs 02/22/22 02/22/22 02/22/22 13:33 13:48 14:15 Temperature 98.2 F Pulse Rate 70 66 65 Respiratory 20 18 18 Rate Blood Pressure 138/82 140/70 148/86 O2 Sat by Pulse 98 97 99 Oximetry 02/22/22 14:30 Temperature Pulse Rate 70 Respiratory 18 Rate Blood Pressure 167/77 O2 Sat by Pulse 99 Oximetry - Reevaluation(s) Reevaluation #1: 02/22/22 13:55 Code stroke was called 02/22/22 14:06 Case was discussed with Dr. Fang who also feels patient is a poor candidate for TPA. We both feel risks outweigh the benefits. He does recommend aspirin and brilinta. This was discussed with patient who is grateful not to receive TPA. 02/22/22 14:13 Case also discussed with Dr. valladares, who will consult. EKG Findings - EKG Comments: EKG Findings:: Sinus rhythm 66. CO 192. QRS 89. QT 408. QTC 421. Left axis. Normal QRS. No acute ST change. Medical Decision Making - Medical Decision Making Patient reevaluated and updated. Patient advised admission for neurology evaluation and further testing and observation. Patient refuses this. Patient does demonstrate medical decision making. Family is present. Patient is agreeable with follow-up. Dr. Valladares was again notified who will try to come see the patient before she leaves. - Lab Data Result diagrams: 02/22/22 13:55 02/22/22 13:55 Lab Results 02/22/22 02/22/22 02/22/22 Range/Units 13:46 13:55 13:55 WBC 11.5 H (3.8-10.6) k/uL RBC 4.20 (3.80-5.40) m/uL Hgb 14.0 (11.4-16.0) gm/dL Hct 41.0 (34.0-46.0) % MCV 97.5 (80.0-100.0) fL MCH 33.2 (25.0-35.0) pg MCHC 34.1 (31.0-37.0) g/dL RDW 13.5 (11.5-15.5) % Plt Count 317 (150-450) k/uL MPV 7.5 Neutrophils % 57 % Lymphocytes % 34 % Monocytes % 4 % Eosinophils % 3 % Basophils % 1 % Neutrophils # 6.5 (1.3-7.7) k/uL Lymphocytes # 3.9 (1.0-4.8) k/uL Monocytes # 0.4 (0-1.0) k/uL Eosinophils # 0.4 (0-0.7) k/uL Basophils # 0.1 (0-0.2) k/uL PT 9.9 (9.0-12.0) sec INR 0.9 (<1.2) APTT 22.1 (22.0-30.0) sec Sodium (137-145) mmol/L Potassium (3.5-5.1) mmol/L Chloride (98-107) mmol/L Carbon Dioxide (22-30) mmol/L Anion Gap mmol/L BUN (7-17) mg/dL Creatinine (0.52-1.04) mg/dL Est GFR (CKD-EPI)AfAm (>60 ml/min/1.73 sqM) Est GFR (CKD-EPI)NonAf (>60 ml/min/1.73 sqM) Glucose (74-99) mg/dL POC Glucose (mg/dL) 193 H (70-110) mg/dL POC Glu Concierge Receptionist ID Perry Brady Calcium (8.4-10.2) mg/dL Total Bilirubin (0.2-1.3) mg/dL AST (14-36) U/L ALT (4-34) U/L Alkaline Phosphatase (38-126) U/L Troponin I (0.000-0.034) ng/mL Total Protein (6.3-8.2) g/dL Albumin (3.5-5.0) g/dL 02/22/22 02/22/22 Range/Units 13:55 13:55 WBC (3.8-10.6) k/uL RBC (3.80-5.40) m/uL Hgb (11.4-16.0) gm/dL Hct (34.0-46.0) % MCV (80.0-100.0) fL MCH (25.0-35.0) pg MCHC (31.0-37.0) g/dL RDW (11.5-15.5) % Plt Count (150-450) k/uL MPV Neutrophils % % Lymphocytes % % Monocytes % % Eosinophils % % Basophils % % Neutrophils # (1.3-7.7) k/uL Lymphocytes # (1.0-4.8) k/uL Monocytes # (0-1.0) k/uL Eosinophils # (0-0.7) k/uL Basophils # (0-0.2) k/uL PT (9.0-12.0) sec INR (<1.2) APTT (22.0-30.0) sec Sodium 141 (137-145) mmol/L Potassium 3.8 (3.5-5.1) mmol/L Chloride 103 (98-107) mmol/L Carbon Dioxide 25 (22-30) mmol/L Anion Gap 13 mmol/L BUN 10 (7-17) mg/dL Creatinine 0.59 (0.52-1.04) mg/dL Est GFR (CKD-EPI)AfAm >90 (>60 ml/min/1.73 sqM) Est GFR (CKD-EPI)NonAf >90 (>60 ml/min/1.73 sqM) Glucose 175 H (74-99) mg/dL POC Glucose (mg/dL) (70-110) mg/dL POC Glu Concierge Receptionist ID Calcium 8.9 (8.4-10.2) mg/dL Total Bilirubin 0.4 (0.2-1.3) mg/dL AST 27 (14-36) U/L ALT 17 (4-34) U/L Alkaline Phosphatase 90 (38-126) U/L Troponin I <0.012 (0.000-0.034) ng/mL Total Protein 7.4 (6.3-8.2) g/dL Albumin 4.5 (3.5-5.0) g/dL - Radiology Data Radiology results: report reviewed (CT brain does not reveal acute abnormality. Possible lacunar infarct. CTA shows stenosis origin right common carotid artery 50-70%.) Critical Care Time Critical Care Time: Yes Total Critical Care Time: 32 Disposition Clinical Impression: Cerebrovascular accident (CVA) Disposition: Left Against Medical Advice Instructions (If sedation given, give patient instructions): Stroke (DC), Self Care Measures After a Stroke (ED) Additional Instructions: You are leaving AGAINST MEDICAL ADVICE. Please do follow-up. Primary care physician tomorrow. Consider neurology follow-up as well. Primary care physician. You will need additional testing and therapy. Continue aspirin daily. Prescription for antiplatelet medication has been sent here pharmacy. Return for weakness, speech problems, balance problems, visual changes, loss of sensation, worsening changes or any other concerns. Prescriptions: Ticagrelor [Brilinta] 90 mg PO BID #14 tab Is patient prescribed a controlled substance at d/c from ED?: No Referrals: Arturo Upton MD [Primary Care Provider] - 1-2 days Time of Disposition: 15:07
[2022-02-22 14:10] LABS: Basophils # (A) 0.1 k/uL (0-0.2); Basophils % (A) 1 %; Eosinophils # (A) 0.4 k/uL (0-0.7); Eosinophils % (A) 3 %; Lymphocytes # (A) 3.9 k/uL (1.0-4.8); Lymphocytes % (A) 34 %; MCH 33.2 pg (25.0-35.0); MCHC 34.1 g/dL (31.0-37.0); MCV 97.5 fL (80.0-100.0); Mean Platelet Volume 7.5; Monocytes # (A) 0.4 k/uL (0-1.0); Monocytes % (A) 4 %; Neutrophils # (A) 6.5 k/uL (1.3-7.7); Neutrophils % (A) 57 %; Platelet Count 317 k/uL (150-450); RDW 13.5 % (11.5-15.5); WBC 11.5 k/uL (3.8-10.6)
[2022-02-22 14:20] LABS: INR 0.9 (<1.2); Partial Thromboplastin Time 22.1 sec (22.0-30.0); Prothrombin Time 9.9 sec (9.0-12.0)
[2022-02-22 14:30] LABS: ALT 17 U/L (4-34); AST 27 U/L (14-36); African American GFR (CKD) >90 (>60 ml/min/1.73 sqM); Albumin 4.5 g/dL (3.5-5.0); Alkaline Phosphatase 90 U/L (38-126); Anion Gap 13 mmol/L; Blood Urea Nitrogen 10 mg/dL (7-17); Calcium 8.9 mg/dL (8.4-10.2); Carbon Dioxide 25 mmol/L (22-30); Chloride 103 mmol/L (98-107); Glucose 175 mg/dL (74-99); Non-African American GFR(CKD) >90 (>60 ml/min/1.73 sqM); Potassium 3.8 mmol/L (3.5-5.1); Sodium 141 mmol/L (137-145); Total Bilirubin 0.4 mg/dL (0.2-1.3); Total Protein 7.4 g/dL (6.3-8.2)
--- NOTE | 2022-02-22 14:38 | CT ---
EXAMINATION TYPE: CT brain wo con for TPA CT DLP: 1147.6 mGycm, Automated exposure control for dose reduction was used. DATE OF EXAM: 02/22/2022 2:05 PM COMPARISON: 04/09/2015. CLINICAL INDICATION:Female, 61 years old with history of Neuro deficit, acute, stroke suspected, Neur o deficits, code stroke TECHNIQUE: Brain: Axial CT images of the brain were obtained with coronal and sagittal reformats created and rev iewed. Contrast used: None. Oral contrast used: None. FINDINGS: Brain: Extra-axial spaces: No abnormal extra-axial fluid collections. Ventricular system: Within normal limits Cerebral parenchyma: Remote injury to the left basal ganglia. No acute intraparenchymal hemorrhage or mass effect. The medina-white junction is well differentiated. Cerebellum: Unremarkable. Mass effect: No evidence of midline shift. Intracranial vasculature: unremarkable Soft tissues: Normal. Calvarium/osseous structures: No depressed skull fracture. Paranasal sinuses and mastoid air cells: Mild scattered paranasal sinus disease. Visualized orbits: Orbital contents are intact. IMPRESSION: 1. No acute intracranial process. 2. Remote left basal ganglia lacunar injury suggested.
--- NOTE | 2022-02-22 14:45 | CT ---
EXAMINATION TYPE: CT angio head neck CT DLP: 771.7 mGycm, Automated exposure control for dose reduction was used. DATE OF EXAM: 02/22/2022 2:23 PM COMPARISON: . CLINICAL INDICATION:Female, 61 years old with history of Neuro deficit, acute, stroke suspected; , Ne uro deficits code stroke TECHNIQUE: Axially acquired helical CT angiogram of the head and neck was obtained with contrast. Axi al images are supplemented with 3D reconstructions [facility]ET criteria used. Contrast used:65 mL of Isovue 370 with IV Contrast, Oral contrast used: None. FINDINGS: CTA HEAD: No evidence of acute intracranial hemorrhage, mass effect, or midline shift. The ventricles, sulci, a nd cisterns are unremarkable. The visualized portions of the internal carotid arteries, middle cerebral arteries, anterior cerebral arteries, and posterior cerebral arteries are patent. The basilar and vertebral arteries are patent. CTA NECK: Right Carotid System: The common carotid artery focal stenosis at its origin of at least 50-70% secondary to noncalcified a therosclerosis (Series 401 image 51). The remainder of the common carotid artery is patent. The inter nal carotid artery bifurcation is patent. Left Carotid System: The common carotid artery and external carotid artery are patent. The carotid bifurcation demonstrate s no evidence of hemodynamically significant stenosis. The remaining portions of the internal carotid artery demonstrate normal size without significant narrowing. Vertebral arteries are patent without evidence hemodynamically significant stenosis. There is a three-vessel aortic arch. The origins of the great vessels are patent. No evidence of hemo dynamically significant stenosis. Scattered groundglass opacities are seen throughout the upper chest with mild intralobular septal thi ckening. IMPRESSION: 1. No evidence of dissection of the cervical internal carotid arteries or vertebral arteries. 2. No evidence of intracranial high-grade stenosis or intracranial aneurysm. 3. Stenosis at the origin of the right common carotid artery of at least 50-70% secondary to atherosc lerotic plaque. 4. Pulmonary vascular congestion suggested correlate with serum BNP.
[2022-02-22] MEDS ORDERED: ASPIRIN 325 MG TAB PO STA (14:50)
[2022-02-22] MEDS ORDERED: TICAGRELOR 90 MG TAB PO STA (14:50)
--- NOTE | 2022-02-22 15:43 | XR ---
EXAMINATION TYPE: XR chest 2V DATE OF EXAM: 02/22/2022 COMPARISON: 11/02/2020 TECHNIQUE: PA and lateral views submitted. HISTORY: Altered mental status FINDINGS: The lungs are clear and there is no pneumothorax, pleural effusion, or focal pneumonia. Heart is en larged and there is postoperative change. Diffuse interstitial pattern. Small right pleural effusion. Hypertrophic degenerative changes spine. Hyperinflation. IMPRESSION: 1. COPD correlate for chronic interstitial lung disease. Interstitial pneumonitis or mild venous agustin estion not excluded.
--- NOTE | 2022-02-22 16:17 | P.CNNES ---
History of Present Illness Consult date: 02/22/22 Requesting physician: Ladarius Dowell Reason for Consult: Acute CVA History of Present Illness: Patient is a 61-year-old right-handed female with history of diabetes, tobacco use, came to the hospital today at 1:19 PM for evaluation of slurred speech, facial droop and balance issues. Patient states that she woke up at 6 AM and was feeling fine. She was at work when at around 10:30 AM, she felt she was feeling off-balance. Her coworkers noted that her face was slightly droopy. She also noticed numbness and tingling of the left arm. She personally noted some numbness and tingling of left perioral region. She denied slurred speech, although it appears that she does have slight slurred speech. Vital signs on arrival blood pressure 138/82, pulse rate 70, temperature 98.2. Blood tests shows WBC 11.5 hemoglobin 14.0, normal platelets. PT/PTT normal. Glucose 193. CMP normal. PT/PTT normal. Patient does have diabetes, with last hemoglobin A1c 11.4 on 11/03/2020. CT head showed no acute process. Remote left basal ganglia lacunar injury suggested. I personally reviewed CT head and agree with the findings. On my review, there is evidence of an old lacune involving the left internal capsule. CTA of the neck showed no evidence of dissection of the cervical internal carotid arteries or vertebral arteries. No evidence of intracranial high-grade stenosis or intracranial aneurysm. Stenosis at the origin of the right common carotid artery of at least 50-70% secondary to atherosclerotic plaque. Pulm onary vascular congestion suggested correlate with serum BNP. Chest x-ray revealed COPD, correlate for chronic interstitial lung disease. Interstitial pneumonitis or mild venous congestion not excluded. ED staff discussed case with stroke neurologist Dr. Rm, her NIH stroke scale was 2-3, and she was not considered a candidate for TPA. Neuro consult was initiated. Patient has history of diabetes for 2 years. Denies hypertension. She does have hyperlipidemia takes Lipitor. Patient states that she was found to have murmur in the heart. Workup revealed "hole in the heart", for which she was referred to [facility] where she underwent open heart surgery, for closure of the hole. Patient has neuropathy in her both feet for last 10-15 years. She also complains of sciatica, with right leg pain. She has smoked 1 pack per day for last 40 years, still smokes. She denies any alcohol use, drugs or marijuana. Denies any history of strokes or TIA. Patient does not take any aspirin or any antiplatelet medication. She takes Humalog for diabetes, and Lipitor 40 mg for hyperlipidemia. Review of Systems All 14 point of review systems reviewed, pertinent positive and negative mentioned in HPI. Denies any chest pain, shortness of breath, wheezing or cough. No double vision or loss of vision. Patient has back pain and right leg symptoms related to sciatica. Past Medical History Past Medical History: Hyperlipidemia Additional Past Medical History / Comment(s): neuropathy History of Any Multi-Drug Resistant Organisms: None Reported Past Surgical History: Cholecystectomy, Coronary Bypass/CABG Past Anesthesia/Blood Transfusion Reactions: No Reported Reaction Past Psychological History: No Psychological Hx Reported Smoking Status: Current every day smoker Past Alcohol Use History: None Reported Past Drug Use History: None Reported - Past Family History Father Family Medical History: Coronary Artery Disease (CAD), Diabetes Mellitus Mother Family Medical History: Hypertension Medications and Allergies Home Medications Medication Instructions Recorded Confirmed Type Amitriptyline HCl [Elavil] 75 mg PO HS 04/09/15 11/02/20 History Omeprazole [PriLOSEC] 20 mg PO AC-BRKFST 04/09/15 11/02/20 History Atorvastatin [Lipitor] 40 mg PO DAILY 11/02/20 11/02/20 History Insulin Aspart [NovoLOG Flexpen] 12 units SQ AC-TID 11/02/20 11/02/20 History Levothyroxine Sodium 150 mcg PO DAILY 11/02/20 11/02/20 History Acetaminophen Tab [Tylenol] 500 mg PO Q6HR PRN tab 11/07/20 Rx HYDROcodone/APAP 5-325MG [[place] 1 each PO Q6HR PRN #12 tab 11/07/20 Rx 5-325] INSULIN ASPART (NovoLOG) [NovoLOG 0 unit SQ ACHS 30 Days #4 vial 11/07/20 Rx (formulary)] Insulin Detemir (Levemir) [Levemir] 50 unit SQ DAILY@0700 30 Days #15 11/07/20 Rx syr Nicotine 14Mg/24Hr Patch [Habitrol] 1 patch TRANSDERM DAILY #20 patch 11/07/20 Rx cefTRIAXone [Rocephin] 2,000 mg IVP Q24HR #14 vial 11/07/20 Rx metroNIDAZOLE [Flagyl] 500 mg PO Q8HR #42 tab 11/07/20 Rx Ticagrelor [Brilinta] 90 mg PO BID #14 tab 02/22/22 Rx Allergies Allergy/AdvReac Type Severity Reaction Status Date / Time Iodinated Contrast Media Allergy Rash/Hives Verified 08/29/21 18:59 Physical Examination - Vital Signs Vital Signs: Vital Signs Temp Pulse Resp BP Pulse Ox 02/22/22 13:33 98.2 F 70 20 138/82 98 Intake and Output 02/21/22 02/22/22 02/22/22 22:59 06:59 14:59 Other: Weight 93.894 kg Patient is a middle aged female, in no acute distress. Patient is alert awake oriented to time place and person. Speech is mildly dysarthric and language functions are normal. Patient can name and repeat very well. Attention, concentration and fund of knowledge is adequate. On cranial nerve examination, pupils are equal, round and reacting to light, visual woods are full on confrontation, with no neglect on double simultaneous to mentation. Her extraocular muscles are intact with no nystagmus. Patient has moderate right facial weakness, central type. Her tongue protrudes to the midline. Palatal elevation and sensation normal, hearing and shoulder shrug normal, facial sensation normal. Shoulder shrug normal. On muscle strength testing, there is no pronator drift and the strength is normal in arms and legs distally and proximally. Her right hip flexion is 5-, which she attributes to her sciatica. Deep tendon reflexes are symmetric, trace at the biceps, 1 brachioradialis, 0 at the knees and ankles and plantars are downgoing. Sensory to touch is equal with no neglect on double simultaneous stimulation. Patient was feeling sensation slightly decreased in the right leg, which she attributes to her radiculopathy. Cerebellar function showed no ataxia for dozndo-sw-mdkh testing. No dysdiadochokinesia. No ataxia for oxet-qs-yopr testing. Tone and bulk of muscles normal. Gait deferred. On general examination, there is no carotid bruit or murmur, S1-S2 audible. Abdomen is soft nontender. No organomegaly, bowel sounds present. Chest is clear to auscultation. Very mild peripheral edema present. Results - Laboratory Findings CBC and BMP: 02/22/22 13:55 02/22/22 13:55 Abnormal Lab Findings: Abnormal Labs 02/22/22 02/22/22 13:46 13:55 WBC 11.5 H POC Glucose (mg/dL) 193 H Assessment and Plan Assessment: * Acute ischemic stroke. Patient has bilateral symptoms, as she has obvious right facial droop, but she has some paresthesias of the left corner of mouth and left arm. She also has mild dysarthria. Patient's current NIH stroke scale is 3. Patient did not receive TPA. * Diabetes * Hyperlipidemia * History of cardiac surgery 20 years ago for possible intracardiac shunt. * Peripheral neuropathy Plan: * Patient was adamant to sign out AGAINST MEDICAL ADVICE. * Patient was informed of importance of neurological testing to prevent recurrent stroke, which could be life-threatening. 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 * We will perform stat MRI of the brain evaluate for an acute stroke (if no contraindications from cardiac standpoint) * 2-D echo with bubble study rule out PFO. * CTA of the neck showed 50-70% stenosis right ICA. We will check carotid Doppler. * Fasting lipid panel * Hemoglobin A1c * Patient has received aspirin 325 mg and Brilinta 90 mg. We will keep her on DAP for now. * Telemetric monitoring rule out arrhythmia. * Cardiology consultation for CVA and history of interatrial shunt. * Case discussed with the ED physician. * Thank you for the consult.
[2022-02-22] MEDS ORDERED: ONDANSETRON 4 MG/2 ML VIAL IVP PRN (16:42)
[2022-02-22] MEDS ORDERED: NALOXONE 0.4 MG/ML 1 ML VIAL IV PRN (16:42)
[2022-02-22] MEDS ORDERED: CYCLOBENZAPRINE 5 MG TAB PO PRN (16:44)
--- NOTE | 2022-02-22 17:50 | MR ---
MRI OF THE BRAIN WO History: Acute stroke COMPARISON: Same-day CT TECHNIQUE: Multiplanar multisequence MR imaging of the brain was obtained without the use of IV cont rast. FINDINGS: No restricted diffusion is noted to suggest acute ischemic infarct. There is old left lacunar infarct . Additional subtle T2 shine through in the left basal ganglia compatible with chronic changes versus artifact. No acute intracranial hemorrhage or abnormal extra-axial fluid collection are noted.There is no midline shift or mass effect. There is mild white matter T2 FLAIR hyperintensities, in keeping chronic microvascular ischemic changes. There is mild parenchymal volume loss. Visualized vascular fl ow voids are unremarkable. Visualized paranasal sinuses and mastoid air cells are patent and aerated. IMPRESSION: No acute infarct or intracranial abnormality. Old left lacunar infarct. Senescent changes.
[2022-02-22 18:19] LABS: Glucose,Whole Blood 213 mg/dL (70-110)
[2022-02-22] MEDS: INSULIN ASPART (NovoLOG) 100 UNIT/ML VIAL SQ SCH (18:19)
[2022-02-22] MEDS: AMITRIPTYLINE HCL 50 MG TAB PO SCH (21:08)
[2022-02-23 06:02] LABS: Glucose,Whole Blood 228 mg/dL (70-110)
[2022-02-23] MEDS: PANTOPRAZOLE 40 MG TABLET PO SCH (06:14)
[2022-02-23] MEDS: LEVOTHYROXINE 75 MCG TAB PO SCH (06:14)
[2022-02-23] MEDS: INSULIN ASPART (NovoLOG) 100 UNIT/ML VIAL SQ SCH ×2 (07:50→16:56)
[2022-02-23] MEDS: ENOXAPARIN 40 MG/0.4 ML SYRINGE SQ SCH (07:50)
[2022-02-23] MEDS: ASPIRIN 81 MG PO SCH (07:54)
[2022-02-23] MEDS: TICAGRELOR 90 MG TAB PO SCH ×2 (07:54→21:01)
[2022-02-23] MEDS ORDERED: ATORVASTATIN 40 MG TAB PO SCH (09:00)
--- NOTE | 2022-02-23 09:30 | CA ---
Transthoracic Echo Report Name: Lidia Hayden Age: 61 Gender: F : 1960 Exam Date: 02/23/2022 08:11 Exam Location: [place] [facility] Ht (in): 70 Wt (lb): 207 Ordering Physician: Andrea Ann MD Attending/Referring Phys: Sports Physiotherapist Lissette Miranda RDCS Procedure CPT: Indications: Acute stroke, history of large "hole", s/p repair Cardiac Hx: Technical Quality: Good Contrast 1: Total Dose (mL): Contrast 2: Total Dose (mL): MEASUREMENTS (Male / Female) Normal Values 2D ECHO LV Diastolic Diameter PLAX 3.5 cm 4.2 - 5.9 / 3.9 - 5.3 cm LV Systolic Diameter PLAX 2.5 cm IVS Diastolic Thickness 1.4 cm 0.6 - 1.0 / 0.6 - 0.9 cm LVPW Diastolic Thickness 1.3 cm 0.6 - 1.0 / 0.6 - 0.9 cm LV Relative Wall Thickness 0.8 RV Internal Dim ED PLAX 3.3 cm LA Systolic Diameter LX 3.9 cm 3.0 - 4.0 / 2.7 - 3.8 cm LA Volume 52.5 cm??? 18 - 58 / 22 - 52 cm??? M-MODE Aortic Root Diameter MM 3.5 cm MV E Point Septal Separation 0.9 cm AV Cusp Separation MM 2.4 cm DOPPLER AV Peak Velocity 149.1 cm/s AV Peak Gradient 8.9 mmHg MV Area PHT 3.2 cm??? Mitral E Point Velocity 68.0 cm/s Mitral A Point Velocity 89.0 cm/s Mitral E to A Ratio 0.8 MV Deceleration Time 240.3 ms MV E' Velocity 5.8 cm/s Mitral E to MV E' Ratio 11.7 FINDINGS Left Ventricle Left ventricular ejection fraction is estimated at 60-65 %. Left ventricular cavity size normal. Moderate concentric left ventricular hypertrophy. Right Ventricle Mild right ventricular dilatation. No TR unable to estimate the right ventricular systolic pressure. Right Atrium Normal right atrial size. Negative agitated saline bubble study for right to left shunt. Left Atrium Mildly increased left atrial area. No evidence for an atrial septal defect. Mitral Valve Structurally normal mitral valve. No mitral stenosis, regurgitation or prolapse. Aortic Valve Trileaflet aortic valve. No aortic valve stenosis or regurgitation. Tricuspid Valve Structurally normal tricuspid valve. Pulmonic Valve Trace pulmonic regurgitation. Pericardium Normal pericardium. No pericardial effusion. Aorta Normal size aortic root and proximal ascending aorta. CONCLUSIONS Normal LV systolic function No evidence of shunting across the interatrial septum with bubble study Previewed by: Dr. El Kate MD (Electronically Signed) Final Date: 23 February 2022 09:29
--- NOTE | 2022-02-23 09:49 | US ---
EXAMINATION TYPE: US carotid duplex BILAT DATE OF EXAM: 02/23/2022 COMPARISON: CTA 02/22/2022 CLINICAL HISTORY: ICA stenosis. CVA. TECHNIQUE: Carotid duplex ultrasound examination. Indirect Doppler criteria was utilized. FINDINGS: EXAM MEASUREMENTS: RIGHT: Peak Systolic Velocity (PSV) cm/sec ----- Right CCA: 86.0 ----- Right ICA: 90.0 ----- Right ECA: 165.4 ICA/CCA ratio: 1.0 RIGHT: End Diastole cm/sec ----- Right CCA: 28.6 ----- Right ICA: 27.4 ----- Right ECA: 23.5 LEFT: Peak Systolic Velocity (PSV) cm/sec ----- Left CCA: 114.5 ----- Left ICA: 114.5 ----- Left ECA: 174.0 ICA/CCA ratio: 1.0 LEFT: End Diastole cm/sec ----- Left CCA: 28.9 ----- Left ICA: 16.0 ----- Left ECA: 20.7 VERTEBRALS (direction of flow): Right Vertebral: Antegrade Left Vertebral: Antegrade Rhythm: Normal INSPECTOR AND HAND PACKAGER NOTES: Intimal thickening noted, no significant stenosis identified. Elevated bilateral E CA velocities. IMPRESSION: Intimal thickening with no significant hemodynamic stenosis bilaterally. Criteria for Assigning % of Stenosis / Diameter reduction (Estimation based on the indirect measurements of the internal carotid artery velocities (ICA PSV). 1. Normal (no stenosis)=ICA PSV < 125 cm/s: ratio < 2.0: ICA EDV<40 cm/s. 2. Less than 50% stenosis=ICA PSV < 125 cm/s: ratio < 2.0: ICA EDV<40 cm/s. 3. 50 to 69% stenosis=ICA PSV of 125 to 230 cm/s: ration 2.0 ? 4.0: ICA EDV 40-100 cm/s. 4. Greater than 70% stenosis to near occlusion= ICA PSV > 230 cm/s: ratio > 4.0: ICA EDV > 100 cm/s. 5. Near occlusion= ICA PSV velocities may be low or undetectable: variable ratio and ICA EDV. 6. Total occlusion=unable to detect flow.
[2022-02-23 11:23] LABS: Chol/HDL Ratio 4.11 Ratio; LDL Cholesterol,Calculated 133.1 mg/dL (0.0-131.0); VLDL Calculation 19.74 mg/dL (5.00-40.00)
[2022-02-23 12:03] LABS: Glucose,Whole Blood 130 mg/dL (70-110)
--- NOTE | 2022-02-23 14:47 | P.HPIM ---
History of Present Illness H&P Date: 02/23/22 Chief Complaint: Possible stroke Patient is a 61-year-old female with a known history of CVA with right-sided weakness, hyperlipidemia, peripheral neuropathy nondiabetic and currently every day smoker presents to ER with complaints of possible stroke. Patient states that around 11:30 AM yesterday shows having difficulty walking and felt off balance. She is also feeling dizzy and spinning sensation. She is also concerned that right side of her face is more droopy. Patient does have history of CVA and right-sided residual weakness. Also complains of numbness and tin gling sensation of Left arm. Denied any worsening slurred speech. Denied any complaints of fever or chills. No chest pain or shortness of breath. No palpations. No leg swelling. No nausea vomiting or abdominal pain or diarrhea. No headache. On admission blood pressure is 138/82 pulse 70 respiration 18 and oxygen saturation to 94% on room air. CT head showed no acute process. Remote left basilar ganglia lacunar infarct noted. CT angiogram of the head and neck showed no evidence of dissection of the cervical internal carotid arteries are was not his. No significant stenosis. Stenosis at the origin of the right ICA of at least 50-70% secondary to this chronic complaint. Pulmonary vascular congestion consistent correlate with serum BNP. EKG showed sinus rhythm. chest x-ray showed COPD correlate for chronic interstitial lung disease. Interstitial pneumonitis or mild venous congestion not excluded. Review of Systems Constitutional: Patient denies any fever or chills . No generalized weakness or weight loss. Abdomen: Patient denied nausea vomiting and diarrhea and abdominal pain. Cardiovascular: Patient denies any chest pain or short of breath no palpitations. Respiratory: patient denied any cough is from production. No shortness of breath Neurologic: Patient denied any numbness or tingling headache. Complains of right facial droop and slurred speech and off balance. Musculoskeletal: Patient denies any complaints of joint swelling or deformity. Skin: Negative Psychiatric: Negative Endocrine: No heat or cold intolerance. No recent weight gain. Genitourinary: No dysuria or hematuria. All other 14 point ROS negative except the above Past Medical History Past Medical History: Hyperlipidemia Additional Past Medical History / Comment(s): neuropathy History of Any Multi-Drug Resistant Organisms: None Reported Past Surgical History: Cholecystectomy, Coronary Bypass/CABG Past Anesthesia/Blood Transfusion Reactions: No Reported Reaction Past Psychological History: No Psychological Hx Reported Smoking Status: Current every day smoker Past Alcohol Use History: None Reported Past Drug Use History: None Reported - Past Family History Father Family Medical History: Coronary Artery Disease (CAD), Diabetes Mellitus Mother Family Medical History: Hypertension Medications and Allergies Home Medications Medication Instructions Recorded Confirmed Type Amitriptyline HCl [Elavil] 100 mg PO HS 04/09/15 02/22/22 History Atorvastatin [Lipitor] 40 mg PO DAILY 11/02/20 02/22/22 History Insulin Aspart [NovoLOG Flexpen] 12 units SQ AC-BID 11/02/20 02/22/22 History Levothyroxine Sodium 150 mcg PO DAILY 11/02/20 02/22/22 History Cyclobenzaprine [Flexeril] 5 mg PO BID PRN 02/22/22 02/22/22 History Ergocalciferol [Vitamin D2 (1250 1,250 mcg PO MO 02/22/22 02/22/22 History Mcg = 00778 Iu)] Omeprazole Magnesium [PriLOSEC OTC] 20 mg PO DAILY 02/22/22 02/22/22 History Ticagrelor [Brilinta] 90 mg PO BID #14 tab 02/22/22 Rx Allergies Allergy/AdvReac Type Severity Reaction Status Date / Time Iodinated Contrast Media Allergy Rash/Hives Verified 02/22/22 16:27 Physical Exam Vitals: Vital Signs Temp Pulse Pulse Resp BP BP Pulse Ox 02/23/22 08:03 97.7 F 94 18 149/83 97 02/23/22 03:33 98.2 F 84 16 112/57 96 02/22/22 23:24 98.0 F 91 16 111/58 96 02/22/22 20:52 98.2 F 81 18 161/100 98 02/22/22 20:30 72 16 134/82 98 02/22/22 20:00 98.2 F 81 18 143/66 161/100 98 02/22/22 19:30 68 16 152/98 02/22/22 18:15 73 18 161/83 98 02/22/22 17:30 74 118 H 180/92 98 02/22/22 17:00 67 18 171/94 97 02/22/22 16:30 76 18 171/94 98 02/22/22 16:00 67 18 179/84 98 02/22/22 15:30 70 18 184/80 99 02/22/22 15:00 66 18 174/74 99 02/22/22 14:45 64 18 170/81 98 02/22/22 14:30 70 18 167/77 99 02/22/22 14:29 70 18 148/86 96 02/22/22 14:15 65 18 148/86 99 02/22/22 14:00 68 18 142/73 98 02/22/22 13:48 66 18 140/70 97 02/22/22 13:33 98.2 F 70 20 138/82 98 Intake and Output 02/22/22 02/23/22 02/23/22 22:59 06:59 14:59 Intake Total 240 95 Balance 240 95 Intake: IV 5 Invasive Line 1 5 Oral 240 90 Other: Voiding Method Toilet # Voids 2 Weight 93.894 kg PHYSICAL EXAMINATION: Patient is lying in the bed comfortably, no acute distress, awake alert and oriented.. HEENT: Normocephalic. Neck is supple. Pupils reactive. Nostrils clear. Oral cavity is moist. Neck reveals no JVD, carotid bruits, or thyromegaly. CHEST EXAMINATION: Trachea is central. Symmetrical expansion. Lung woods clear to auscultation and percussion. CARDIAC: Normal S1, S2 with no gallops. No murmurs ABDOMEN: Soft. Bowel sounds normal. No organomegaly. No abdominal bruits. Extremities: reveal no edema. No clubbing or cyanosis Neurologically awake, alert, oriented x3 right-sided facial droop and right- sided weakness. No sensory deficit. Skin: No rash or skin lesions. Psychiatric: Coperative. Nonsuicidal Musculoskeletal: No joint swelling or deformity. Normal range of motion. Results CBC & Chem 7: 02/22/22 13:55 02/22/22 13:55 Labs: Abnormal Lab Results - Last 24 Hours (Table) 02/22/22 02/22/22 02/22/22 Range/Units 13:46 13:55 13:55 WBC 11.5 H (3.8-10.6) k/uL Glucose 175 H (74-99) mg/dL POC Glucose (mg/dL) 193 H (70-110) mg/dL Hemoglobin A1c (0.0-6.0) % 02/22/22 02/22/22 02/23/22 Range/Units 16:25 18:18 05:57 WBC (3.8-10.6) k/uL Glucose (74-99) mg/dL POC Glucose (mg/dL) 213 H 228 H (70-110) mg/dL Hemoglobin A1c 8.2 H (0.0-6.0) % Thrombosis Risk Factor Assmnt - DVT/VTE Prophylaxis DVT/VTE Prophylaxis: Pharmacologic Prophylaxis ordered - Choose All That Apply Each Factor Represents 1 point: Age 41-60 years Other Risk Factors: No Each Risk Factor Represents 5 Points: Stroke (< 1 month) Thrombosis Risk Factor Assessment Total Risk Factor Score: 6 Thrombosis Risk Factor Assessment Level: High Risk Assessment and Plan Assessment: Worsening symptoms of right facial droop and slurred speech likely due to acute CVA. Not a candidate for TPA as per the stroke team evaluation the ER. History of CVA with right-sided weakness Right ICA 50-70% stenosis. Hyperlipidemia Diabetes type 2 History of cardiac surgery about 20 years ago for intracardiac shunt. Peripheral neuropathy likely due to diabetes GI and DVT prophylaxis. Lovenox subcu. Plan: Patient will be continued on aspirin and breathingBrillinta. Continue with neurochecks. Stroke workup including CT head and CT neck was done. Neurology is on board. Follow up lipid panel, A1c level and continue with telemetry monitoring to rule out arrhythmia. 2-D echocardiogram was ordered. MRI of the brain was ordered to rule out acute CVA. Continue the home medications and follow closely. Speech and swallow evaluation and PTOT will be consulted. Time with Patient: Greater than 30
--- NOTE | 2022-02-23 15:29 | P.PN ---
Subjective Progress Note Date: 02/23/22 Patient was seen for a follow-up. Patient apparently seems to be getting worse. Patient's right facial droopiness is worse, as well as dysarthria. Now she has developed right arm weakness as well. Please refer to examination below. Patient complains of headache 12/22, bifrontal, also complains of feeling weird. Telemetry monitoring showing sinus rhythm, no other arrhythmia. Objective - Vital Signs Vital signs: Vital Signs Temp 97.7 F 02/23/22 08:03 Pulse 94 02/23/22 08:03 Resp 18 02/23/22 08:03 BP 149/83 02/23/22 08:03 Pulse Ox 97 02/23/22 08:03 FiO2 Intake & Output 02/22/22 02/23/22 02/23/22 18:59 06:59 18:59 Intake Total 240 95 Balance 240 95 Weight 93.894 kg 93.894 kg Intake: IV 5 Invasive Line 1 5 Oral 240 90 Other: Voiding Method Toilet # Voids 2 - Exam Patient is a middle aged female, in no acute distress. Patient is alert awake oriented to time place and person. Speech is mildl to moderately dysarthric and language functions are normal. Patient can name and repeat very well. Attention, concentration and fund of knowledge is adequate. On cranial nerve examination, pupils are equal, round and reacting to light, visual woods are full on confrontation, with no neglect on double simultaneous to mentation. Her extraocular muscles are intact with no nystagmus. Patient ortiz s moderate right facial weakness, central type, slightly worse than yesterday. Her tongue protrudes slightly to the right. Palatal elevation and sensation normal, hearing and shoulder shrug normal, facial sensation normal. Shoulder shrug normal. On muscle strength testing, there is right pronator drift, which is new as well. Her strength is (right/left) deltoid 5/5, biceps 5/5, triceps 5/5, roll tension tester 4+/5, hip flexion 5-/5, ankle dorsiflexion 5/5. Deep tendon reflexes are symmetric, trace at the biceps, 1 brachioradialis, 0 at the knees and ankles and plantar is up on the right, down on left. Sensory to touch is equal with no neglect on double simultaneous stimulation. Patient was feeling sensation slightly decreased in the right leg, which she attributes to her radiculopathy. Cerebellar function showed no ataxia for [id number] testing. Her finger tapping is decreased on the right as compared to left. No ataxia for [id number]-ides testing. Tone and bulk of muscles normal. Gait deferred. On general examination, there is no carotid bruit or murmur, S1-S2 audible. Abdomen is soft nontender. No organomegaly, bowel sounds present. Chest is clear to auscultation. Very mild peripheral edema present. - Labs CBC & Chem 7: 02/22/22 13:55 02/22/22 13:55 Labs: Abnormal Lab Results - Last 24 Hours (Table) 02/22/22 02/22/22 02/22/22 Range/Units 13:46 13:55 13:55 WBC 11.5 H (3.8-10.6) k/uL Glucose 175 H (74-99) mg/dL POC Glucose (mg/dL) 193 H (70-110) mg/dL Hemoglobin A1c (0.0-6.0) % 02/22/22 02/22/22 02/23/22 Range/Units 16:25 18:18 05:57 WBC (3.8-10.6) k/uL Glucose (74-99) mg/dL POC Glucose (mg/dL) 213 H 228 H (70-110) mg/dL Hemoglobin A1c 8.2 H (0.0-6.0) % Assessment and Plan Assessment: * Acute ischemic stroke involving left external capsule, most likely lacunar type. Patient's symptoms have got worse. Patient's current NIH stroke scale is 4 (related to moderate dysarthria, moderate right facial weakness, and right pronator drift). * Diabetes * Hyperlipidemia * History of cardiac surgery 20 years ago for possible intracardiac shunt. * Peripheral neuropathy * Tobacco use Plan: * Appears patient's symptoms have gotten worse, now with worsening dysarthria and right arm pronator drift (new). * MRI of the brain reported as no acute infarct or intracranial abnormality. Old left lacunar infarct. Senescent changes. I personally reviewed MRI of the brain, and appears there is a small area of acute ischemia involving the left external capsule. I discussed with Dr. Hope, who agreed with evidence of an acute stroke. Please refer to addended report. * 2-D echo with bubble study revealed normal ejection fraction 60-65%. Left ventricular cavity is normal. Moderate concentric LVH. Left atrial size is mildly increased. No evidence of ASD. Bubble study was reported as negative. * CTA of the neck showed 50-70% stenosis right ICA. * Carotid Doppler revealed intimal thickening with no significant hemodynamic Stenosis bilaterally. * Fasting lipid panel with cholesterol 202, LDL 133, HDL 49 and triglycerides 98.7. Increase Lipitor to 80 mg daily. Target LDL <70. * Hemoglobin A1c 8.2, (better than 11.4 on 11/03/2020). Suggest optimize control of diabetes. Target A1c <7.0. * Telemetric monitoring so far showing no arrhythmia. Only sinus rhythm. * Patient's blood pressure is controlled, not on any blood pressure medication. * Continue DAP with Brilinta 90 mg twice a day and aspirin 81 mg daily. After 1 month, may maintain on single agent aspirin 81 mg daily. * PT OT, speech therapy. * DVT prophylaxis: Patient on Lovenox 40 mg subcu daily. * Recommend complete tobacco cessation. * Dr. Garcia Will resume neurology service in the morning.
[2022-02-23 16:35] LABS: Glucose,Whole Blood 148 mg/dL (70-110)
[2022-02-23 20:41] LABS: Glucose,Whole Blood 161 mg/dL (70-110)
[2022-02-23] MEDS: AMITRIPTYLINE HCL 50 MG TAB PO SCH (21:01)
[2022-02-24 00:15] VITALS: RESP 18
[2022-02-24] MEDS: INSULIN ASPART (NovoLOG) 100 UNIT/ML VIAL SQ SCH ×3 (06:21→17:20)
[2022-02-24] MEDS: PANTOPRAZOLE 40 MG TABLET PO SCH (06:54)
[2022-02-24] MEDS: LEVOTHYROXINE 75 MCG TAB PO SCH (06:54)
[2022-02-24] MEDS ORDERED: ATORVASTATIN 80 MG TAB PO SCH (09:00)
[2022-02-24] MEDS: ASPIRIN 81 MG PO SCH (09:10)
[2022-02-24] MEDS: ENOXAPARIN 40 MG/0.4 ML SYRINGE SQ SCH (09:10)
[2022-02-24] MEDS: TICAGRELOR 90 MG TAB PO SCH (09:10)
[2022-02-24 09:12] LABS: Glucose,Whole Blood 242 mg/dL (70-110)
[2022-02-24 11:05] VITALS: TEMP 97.7
[2022-02-24 11:54] LABS: Glucose,Whole Blood 120 mg/dL (70-110)
--- NOTE | 2022-02-24 13:48 | P.PN ---
Subjective Progress Note Date: 02/24/22 The patient is seen in neurologic follow-up on February 24, 2022, via teleneurology. The patient reports that she is feeling better today she continues to have symptoms of weakness in her right upper extremity as well as a facial droop however, she reports feeling better than yesterday. The chart has been reviewed. Imaging has been reviewed. Objective - Vital Signs Vital signs: Vital Signs Temp 97.5 F L 02/24/22 04:48 Pulse 62 02/24/22 04:48 Resp 18 02/24/22 04:48 BP 167/76 02/24/22 04:48 Pulse Ox 95 02/24/22 04:48 FiO2 Intake & Output 02/23/22 02/24/22 02/24/22 18:59 06:59 18:59 Intake Total 635 118 Balance 635 118 Intake: IV 5 Invasive Line 1 5 Oral 630 118 Other: Voiding Method Toilet Toilet # Voids 2 2 - Exam Gen.: The patient is reclining in the bed. She is well-nourished, well- developed and in no acute distress. HEENT: Head is atraumatic, normocephalic. Fundus not visualized. There is no scleral icterus. Mucous membranes are moist. Neurological examination Mental status: The patient is awake, alert and oriented 3. Her speech is clear. There is no dysarthria or aphasia. Cranial nerves: Pupils are equal and reactive. There is a right facial droop. Motor: Right deltoid strength 3+/5. Right identification technician, biceps and triceps strength 4/5. Right opponens pollicis 2-3/5. - Labs CBC & Chem 7: 02/22/22 13:55 02/22/22 13:55 Labs: Abnormal Lab Results - Last 24 Hours (Table) 02/23/22 02/23/22 02/23/22 Range/Units 07:34 11:49 16:31 POC Glucose (mg/dL) 130 H 148 H (70-110) mg/dL Cholesterol 202.00 H (0.00-200.00) mg/dL LDL Cholesterol, Calc 133.1 H (0.0-131.0) mg/dL 02/23/22 Range/Units 20:36 POC Glucose (mg/dL) 161 H (70-110) mg/dL Cholesterol (0.00-200.00) mg/dL LDL Cholesterol, Calc (0.0-131.0) mg/dL Assessment and Plan Assessment: Acute ischemic stroke. Patient has bilateral symptoms, as she has obvious right facial droop, but she has some paresthesias of the left corner of mouth and left arm. She also has mild dysarthria. Patient's current NIH stroke scale is 3. Patient did not receive TPA. MRI of the brain revealed a small acute infarct in the left external capsule * Diabetes * Hyperlipidemia * History of cardiac surgery 20 years ago for possible intracardiac shunt. * Peripheral neuropathy Plan: 1. Stroke testing is complete. 2. The patient is neurologically improved as compared to yesterday. She will continue to require outpatient OT and PT 3. Continue DAP with Brilinta 90 mg twice a day and aspirin 81 mg daily. After 1 month, may maintain on single agent aspirin 81 mg daily. * PT OT, speech therapy. * DVT prophylaxis: Patient on Lovenox 40 mg subcu daily. * Recommend complete tobacco cessation. Time with Patient: Less than 30 (Spent 15 minutes with patient via telemedicine)
[2022-02-24 16:33] LABS: Glucose,Whole Blood 155 mg/dL (70-110)
[2022-02-24 16:48] VITALS: BP 153/91; PULSE 70
[2022-02-26] MEDS ORDERED: ERGOCALCIFEROL 1,250 MCG (50,000 IU) CAPSULE PO SCH (09:00)
== END 2022-02-24 17:33 | disposition home or self-care (01) | DRG 65 ==
LOC: EC 13:19 → 3SCARD 16:42
PROVIDERS: ADMIT Internal Medicine; ATTEND Internal Medicine
DX: I63.81 Other cerebral infarction due to occlusion or stenosis of small artery (principal); I69.351 Hemiplegia and hemiparesis following cerebral infarction affecting right dominant side; I65.21 Occlusion and stenosis of right carotid artery; E78.5 Hyperlipidemia, unspecified; Z20.822 Contact with and (suspected) exposure to COVID-19; J44.9 Chronic obstructive pulmonary disease, unspecified; R01.1 Cardiac murmur, unspecified; R47.1 Dysarthria and anarthria; R29.703 NIHSS score 3; E11.42 Type 2 diabetes mellitus with diabetic polyneuropathy; R29.704 NIHSS score 4; F17.210 Nicotine dependence, cigarettes, uncomplicated; M54.31 Sciatica, right side; R29.810 Facial weakness; Z79.02 Long term (current) use of antithrombotics/antiplatelets; Z79.4 Long term (current) use of insulin; Z79.890 Hormone replacement therapy; Z79.899 Other long term (current) drug therapy; Z95.1 Presence of aortocoronary bypass graft; Z90.49 Acquired absence of other specified parts of digestive tract; Z91.041 Radiographic dye allergy status
CPT/HCPCS: 36415; 70450; 70496; 70498; 70551; 71046; 80053; 80061; 83036; 84484; 85025; 85610; 85730; 93005; 93306; 93880; 96374; 96375; 99291

== ENCOUNTER 2022-10-31 07:19 | Day surgery (SDC) | payer BC ==
[~2022-10-31 07:19] MED LIST: ALPRAZolam 0.25 MG TAB PO PRN; ALPRAZolam 0.5 MG TAB PO PRN; ASPIRIN 325 MG TAB PO STA; ATORVASTATIN 80 MG TAB PO STA; HEPARIN SODIUM,PORCINE 10,000 UNIT in SODIUM CHLORIDE 0.9% 1,000 ML IRRIGATION PRN; HEPARIN SODIUM,PORCINE 2,500 UNIT in SODIUM CHLORIDE 0.9% 250 ML IRRIGATION PRN; NITROGLYCERIN SL TABS 0.4 MG TAB SUBLINGUAL PRN; SODIUM CHLORIDE 0.9% 1,000 ML in EMPTY BAG 1 BAG IV SCH
[2022-10-31 07:41] VITALS: RESP 18; TEMP 97.5
[2022-10-31 07:48] LABS: Glucose,Whole Blood 138 mg/dL (70-110)
[2022-10-31 08:04] LABS: African American GFR (CKD) >90 (>60 ml/min/1.73 sqM); Anion Gap 9 mmol/L; Blood Urea Nitrogen 11 mg/dL (7-17); Calcium 9.5 mg/dL (8.4-10.2); Carbon Dioxide 29 mmol/L (22-30); Chloride 101 mmol/L (98-107); Glucose 141 mg/dL (74-99); Non-African American GFR(CKD) >90 (>60 ml/min/1.73 sqM); Potassium 4.4 mmol/L (3.5-5.1); Sodium 139 mmol/L (137-145)
[2022-10-31] MEDS ORDERED: VERAPAMIL 2.5 MG/ML 2 ML AMP ONE (08:50)
[2022-10-31] MEDS ORDERED: fentaNYL (PF) 50 MCG/ML 2 ML AMP ONE (09:32)
[2022-10-31] MEDS ORDERED: fentaNYL (PF) 50 MCG/ML 2 ML AMP IV ONE (09:36)
[2022-10-31] MEDS ORDERED: LIDOCAINE 1% INJ 10MG/ML (5 ML VIAL-PF) SQ ONE (09:37)
[2022-10-31] MEDS ORDERED: VERAPAMIL SYRINGE (5 MG/10 ML) INTRAARTER ONE (09:39)
[2022-10-31] MEDS ORDERED: HEPARIN SODIUM 1,000 UN/ML (10ML VL) IV ONE (09:44)
[2022-10-31] MEDS ORDERED: IOPAMIDOL-370 100ML BTL INJ ONE (09:49)
[2022-10-31] MEDS ORDERED: RX INFO: IV CONTRAST WAS GIVEN 1 EACH MISC MISCELLANE PRN (10:00)
[2022-10-31] MEDS ORDERED: SODIUM CHLORIDE 0.9% 1,000 ML IV SCH (10:00)
[2022-10-31] MEDS ORDERED: CYCLOBENZAPRINE 5 MG TAB PO PRN (10:01)
--- NOTE | 2022-10-31 10:06 | P.CARDCATH ---
Date of Procedure: 10/31/22 Description of Procedure: Cardiac Catheterization: The patient is a 61-year-old female with a history of hyperlipidemia, diabetes, prior history of smoking and recent CVA who had an abnormal MPI. Recommendations were made regarding cardiac catheterization, the risks and the complications were discussed with the patient who is in full understanding and agreement. Procedure Description: Patient was brought to cardiac cath tech in fasting semi-sedated state after receiving Fentanyl and Benadryl achieiving moderate conscious sedated state. Using Xylocaine Anesthesia and Seldinger technique, a 6-Chinese sheath was introduced in the right radial artery . Subsequently, selective coronary angiography was performed using a 5-Chinese 3.5 bend Deloris catheter. Multiple views of the coronary artery including hemiaxial views were obtained. The 5-Chinese pigtail catheter was used to cross the aortic valve and LVEDP was calculated. Following that, catheter and sheath were removed. Hemostasis was obtained with deployment of TR band . There was no immediate complication. Patient was returned to room in stable condition. Of note, the patient received a total of 5000 units of intravenous heparin as well as intra-arterial verapamil. Findings: Left main: This is a large size vessel, bifurcating into LAD and left circumflex, proximal left main has 10-20% plaque with no high-grade stenosis LAD: This is a large size vessel, giving rise to a very proximal diagonal branch. The LAD in the mid segment has a 2030% plaque the rest of the vessel has no high-grade stenosis Left circumflex: This is a large nondominant vessel giving rise to 2 obtuse marginal branch, the second one is large in caliber. The second obtuse marginal branch has a 30-40% plaque with no high-grade stenosis RCA: This is a large dominant vessel bifurcating distally to PDA and PLV the right coronary artery in the midsegment has mild intimal disease of 10-20% Left Ventriculogram: Not performed Hemodynamics: There was no gradient across the aortic valve , LVEDP was 10-12 mmHg Conclusion: 1. Mild triple-vessel disease 2. Right dominance 3. Normal LVEDP Recommendations: I have recommended to continue maximum medical therapy with aggressive coronary risks modifications. The findings and the recommendations were discussed with the patient and the family and they were in full understanding and agreement. Duration of sedation is 17 minutes.
[2022-10-31 13:34] VITALS: BP 142/64; PULSE 68
[2022-10-31] MEDS ORDERED: NON FORMULARY DRUG (Insulin Aspart [Novolog Flexpen] 100 UNIT/ML Insuln.Pen) SQ SCH (17:30)
[2022-10-31] MEDS ORDERED: TICAGRELOR 90 MG TAB PO SCH (21:00)
[2022-11-01] MEDS ORDERED: ASPIRIN 81 MG PO SCH (09:00)
[2022-11-01] MEDS ORDERED: ATORVASTATIN 40 MG TAB PO SCH (09:00)
[2022-11-01] MEDS ORDERED: NON FORMULARY DRUG (Omeprazole Magnesium [Prilosec Otc] 20 MG Tablet) PO SCH (09:00)
[2022-11-01] MEDS ORDERED: LEVOTHYROXINE SODIUM 150 MCG PO SCH (09:00)
[2022-11-05] MEDS ORDERED: ERGOCALCIFEROL 1,250 MCG (50,000 IU) CAPSULE PO SCH (10:01)
== END 2022-10-31 13:56 | disposition home or self-care (01) ==
LOC: CATHCVL 07:19
PROVIDERS: ATTEND Internal Medicine Interventional Cardiology
DX: I63.9 Cerebral infarction, unspecified (principal); E78.2 Mixed hyperlipidemia; E11.9 Type 2 diabetes mellitus without complications; Z82.49 Family history of ischemic heart disease and other diseases of the circulatory system; F17.210 Nicotine dependence, cigarettes, uncomplicated; Z87.74 Personal history of (corrected) congenital malformations of heart and circulatory system
CPT/HCPCS: 93458; 80048; C1769 ×2; C1894; J2001; J3010; J1644; Q9967

== ENCOUNTER → 2024-07-14 | Outpatient (CLI) | payer BC ==
--- NOTE | 2024-07-15 19:30 | MR ---
EXAMINATION TYPE: MR angio head wo/neck wo/w con DATE OF EXAM: 07/14/2024 2:54 PM COMPARISON: None. CLINICAL INDICATION: Female, 63 years old with history of I67.9 I65.23, Rt side weakness/numbness, CV A, stenosis TECHNIQUE: Multiplanar multiecho imaging on a 3.0 Vanessa magnet is performed through the [place] of Gurvinder lis. 3-D [id number] imaging is performed. Source images are reviewed on the computer in the axi al plane. Reconstructed images rotating on the computer are reviewed. IV Contrast: 9 mL Gadobutrol (None, if empty) FINDINGS: The internal carotid arteries bifurcate normally into A1 and M1 segments. The A2 segments are normal. Middle cerebral artery branches are normal. Anterior communicating artery is patent. The right posterior communicating artery is absent. The left posterior communicating artery is absent. Vertebrobasilar arteries within the [id number] are normal. Posterior cerebral vasculature is norm al. No suspicious aneurysm or aneurysmal dilatation is evident. No obstructions are identified. No significant flow-limiting stenosis is evident. Ophthalmic artery is Normal. MRA of neck vessels: Slab artifact is present. No flow defect at the carotid bifurcations is evident. Internal carotid arteries are patent to the skull base. Vertebral arteries are codominant. IMPRESSION: 1. Unremarkable MRA [place] of [place].. 2. No significant flow-limiting stenosis carotid bifurcations. [facility], , 07/15/2024 7:28 PM
== END | disposition home or self-care (01) ==
LOC: RADMRIMAIN 13:30
PROVIDERS: ATTEND Psychiatry & Neurology Neurology
DX: I67.9 Cerebrovascular disease, unspecified (principal); I65.23 Occlusion and stenosis of bilateral carotid arteries
CPT/HCPCS: 70544; 70549; A9585